=== PATIENT | female | born 1945 | race Caucasian/White ===

== ENCOUNTER 2019-02-21 06:35 | Outpatient (CLI) | payer MEDICARE ==
[~2019-02-21] VITALS: Ht 167.6 cm; Wt 62.6 kg
[2019-02-21] MEDS ORDERED: CLOP75TA28 PO (14:48)
[2019-02-21] MEDS ORDERED: NITR0.4T39 SL (14:48)
[2019-02-21] MEDS ORDERED: ASPI-586 PO (14:48)
[2019-02-21] MEDS ORDERED: MULT-1021 PO (14:48)
[2019-02-21] MEDS ORDERED: CALC-654 PO (14:48)
[2019-02-21] MEDS ORDERED: DICY10CA12 PO (14:48)
[2019-02-21] MEDS ORDERED: PANT40TA3 PO (14:48)
[2019-02-21] MEDS ORDERED: CITA40TA11 PO (14:48)
[2019-02-21] MEDS ORDERED: CYAN100088 PO (14:48)
[2019-02-21] MEDS ORDERED: MELO7.5T46 PO (14:48)
[2019-02-21] MEDS ORDERED: POTA20TA8 PO (14:48)
[2019-02-21] MEDS ORDERED: METO50TA15 PO (14:48)
[2019-02-21] MEDS ORDERED: NAPR-1033 PO (14:48)
[2019-02-21] MEDS ORDERED: ZOLP10TA5 PO (14:48)
[2019-02-21] MEDS ORDERED: TRAM50TA2 PO (14:48)
[2019-02-21] MEDS ORDERED: ROPI0.5T2 PO (14:48)
[2019-02-21] MEDS ORDERED: TERB250T16 PO (14:48)
[2019-02-21] MEDS ORDERED: FURO20TA4 PO (14:48)
[2019-02-21] MEDS ORDERED: MELA1TAB15 PO (14:48)
[2019-02-21] MEDS ORDERED: CETI10TA17 PO (14:48)
[2019-02-21] MEDS ORDERED: DIPH50CA40 PO (14:48)
[2019-02-21] MEDS ORDERED: DOCU100T7 PO (14:48)
[2019-02-21] MEDS ORDERED: PRAV40TA2 PO (14:48)
[2019-02-21] MEDS ORDERED: IBUP-2055 PO (14:48)
[2019-02-23] MEDS ORDERED: ISM60TCR PO (07:39)
== END 2019-02-21 15:21 | disposition home or self-care (01) ==
LOC: PREOP 06:35
PROVIDERS: ATTEND Pediatrics
DX: Z01.818 Encounter for other preprocedural examination (principal)

== ENCOUNTER → 2019-03-27 | Outpatient (CLI) | payer MEDICARE ==
[~2019-03-27] VITALS: Ht 165 cm; Wt 63.0 kg
[~2019-03-27] MED LIST: ASPI-586 PO; CALC-654 PO; CATHETER FLUSH 10 ML SYR IV PRN; CETI10TA17 PO; CITA40TA11 PO; CLOP75TA28 PO; CYAN100088 PO; DICY10CA12 PO; DIPH50CA40 PO; DOCU100T7 PO; FURO20TA4 PO; HYDR-3812 PO; IBUP-2055 PO; ISM60TCR PO; MELA1TAB15 PO; MELO7.5T46 PO; METO50TA15 PO; MULT-1021 PO; NAPR-1033 PO; NITR0.4T39 SL; PANT40TA3 PO; POTA20TA8 PO; PRAV40TA2 PO; REGADENOSON 0.4 MG/5 ML SYR (LEXISCAN) IV ONE; ROPI0.5T2 PO; SENN25TA10 PO; TERB250T16 PO; TRAM50TA2 PO; ZOLP10TA5 PO
[2019-03-27 08:06] VITALS: BP 133/81
[2019-03-27 08:08] VITALS: BP 137/76
--- NOTE | 2019-03-27 15:09 | STRESS TEST ---
DATE OF SERVICE: 03/27/2019 REFERRING PHYSICIAN: Dr. Doni Zaman. In summary, the patient was injected with 10.1 mCi of technetium-99 Myoview and the resting images were acquired. Then, with peak stress level, a 32.7 mCi of technetium-99 Myoview were injected and the stress images were acquired. The resting and stress images were reviewed and compared in the short axis, horizontal long axis, and vertical long axis views. Review of the images showed breast attenuation, there is mild decreased uptake at the basal to mid inferior wall with mild reversibility. SSS is 3, SDS 3, TID value is increased to 1.21. On the gated images, the left ventricle appeared to be normal size with normal contractility. Calculated ejection fraction 60%. CONCLUSION: 1. Breast attenuation affecting the quality of the images with mild decreased uptake involving the basal to mid inferior wall with mild reversibility. 2. Transient ischemic dilatation value is mildly increased of 1.21. 3. Normal left ventricular size with normal contractility. Calculated ejection fraction 60%. Job ID: [id number] DocumentID: [id number] Dictated Date: 03/27/2019 11:47:07 Software Configuration Manager Date: 03/27/2019 15:09:01 Dictated By: MARTIR EDWARDS MD
== END ==
LOC: CARD 06:50
PROVIDERS: ATTEND Pediatrics
DX: Z01.810 Encounter for preprocedural cardiovascular examination (principal); C18.3 Malignant neoplasm of hepatic flexure; I25.89 Other forms of chronic ischemic heart disease
CPT/HCPCS: 78452; 93017

== ENCOUNTER 2019-03-30 09:22 | Inpatient (IN) | payer MEDICARE ==
[~2019-03-30] VITALS: Ht 165 cm; Wt 63.2 kg
[2019-03-30] VITALS (10 sets, daily range): BP systolic 92–147; BP diastolic 53–99
[~2019-03-30 09:22] MED LIST changes: -CATHETER FLUSH 10 ML SYR IV PRN; -REGADENOSON 0.4 MG/5 ML SYR (LEXISCAN) IV ONE
[2019-03-30] MEDS ORDERED: CLINDAMYCIN 600 MG/50 ML IVPB 50 ML IV ONE (10:00)
[2019-03-30] MEDS ORDERED: METOCLOPRAMIDE INJ 10 MG/2 ML (REGLAN) IVP ONE (11:00)
[2019-03-30] MEDS ORDERED: FAMOTIDINE 20MG/2ML IV (PEPCID) IVP ONE (11:00)
[2019-03-30] MEDS: LACTATED RINGERS 1,000 ML IV PRN ×3 (11:15→15:45)
[2019-03-30] MEDS: CATHETER FLUSH 10 ML SYR IV PRN (11:15)
--- NOTE | 2019-03-30 12:02 | Progress Note-Pre Operative ---
Pre-Operative Progress Note H&P Reviewed The H&P was reviewed, patient examined and no changes noted. Time Seen by Provider: 12:00 Date H&P Reviewed: Mar 30, 2019 Time H&P Reviewed: 12:01 Pre-Operative Diagnosis: Colon CA, hepatic flexure JOSÉ MIGUEL MOYER DO Mar 30, 2019 12:02
[2019-03-30] MEDS ORDERED: BUP/EPI 0.25% 1:200,000 (MARCAINE) 10 ML VIAL IJ ONE (12:08)
[2019-03-30] MEDS ORDERED: LIDOCAINE PF 2% 5 ML (XYLOCAINE) VIAL ONE (12:08)
[2019-03-30] MEDS ORDERED: ROCURONIUM 10 MG/ML 5 ML SYRINGE IV ONE (12:08)
[2019-03-30] MEDS ORDERED: ONDANSETRON 4 MG/2 ML (SDV) Z0FRAN ONE (12:08)
[2019-03-30] MEDS ORDERED: proPOfol 200 MG/20 ML (DIPRIVAN) VIAL IV ONE (12:08)
[2019-03-30] MEDS ORDERED: DEXAMETHASONE 10 MG/ML (DECADRON) 1 ML VIAL ONE (12:09)
[2019-03-30] MEDS ORDERED: SEVOFLURANE (ULTANE) 15 ML INHAL SOLN ONE ×16 (12:09→17:04)
[2019-03-30] MEDS ORDERED: MIDAZOLAM 2 MG/2 ML (VERSED) VIAL ONE (12:09)
[2019-03-30] MEDS ORDERED: fentaNYL INJECTION 100 MCG/2 ML AMP ONE ×3 (12:09→16:12)
[2019-03-30] MEDS ORDERED: morphine INJ 10 MG/ML 1ML (SYR OR VIAL) ONE (15:10)
[2019-03-30] MEDS ORDERED: BUPIVACAINE 0.5% 30 ML (SENSORCAINE) VIAL ONE (16:02)
[2019-03-30] MEDS ORDERED: morphine INJ 10 MG/ML 1ML (SYR OR VIAL) IVP PRN (16:15)
[2019-03-30] MEDS ORDERED: ONDANSETRON 4 MG/2 ML (SDV) Z0FRAN IVP PRN ×2 (16:15→17:15)
--- NOTE | 2019-03-30 16:22 | Progress Note-Post Operative ---
Post-Operative Progess Note Surgeon (s)/Organ Assembler (s) Surgeon JOSÉ MIGUEL MOYER DO Organ Assembler: [place] Pre-Operative Diagnosis Colon CA, hepatic flexure Post-Operative Diagnosis Same plus extensive adhesions Procedure & Operative Findings Date of Procedure 03/30/19 Procedure Performed/Findings 1. Extended right hemicolectomy 2. Small bowel resection 3. Extensive ROBERT appx 3 hours Anesthesia Type GET Estimated Blood Loss Estimated blood loss (mL): 200ml Specimens/Packing Specimens Removed Right colon with portion of TI and portion of transverse colon Portion of small bowel JOSÉ MIGUEL MOYER DO Mar 30, 2019 16:22
[2019-03-30] MEDS: morphine INJ 10 MG/ML 1ML (SYR OR VIAL) IVP ONE (16:56)
[2019-03-30] MEDS ORDERED: HYDROmorphone 2 MG/ML VIAL (DILAUDID) ONE (17:14)
[2019-03-30] MEDS ORDERED: HYDROmorphone 2 MG/ML VIAL (DILAUDID) IV ONE (17:15)
[2019-03-30] MEDS ORDERED: fentaNYL INJECTION 100 MCG/2 ML AMP IVP ONE (17:15)
--- NOTE | 2019-03-30 18:05 | NUR ---
KANDIS CHURCH admitted to room OR-1, with an admitting diagnosis of colon cancer with colon resection, on 03/30/19 from day surgery via bed,accompanied by carlos jacob rn.KANDIS CHURCH introduced to surroundings, call light, bed controls, phone, TV, temperature control, lights, meal times, smoking policy, visitor policy, side rail policy, bathrooms and showers. Patient Rights given to patient in the handbook. KANDIS CHURCH verbalizes understanding that [facility] is not responsible for the loss or damage to any personal effects or valuables that are kept in the patients posession during their hospitalization. KANDIS CHURCH verbalizes understanding of Interdisciplinary Patient Education. Patient and/or family were informed about the Rapid Response Team and its purpose.
--- NOTE | 2019-03-30 18:05 | NUR ---
report from Henny GOODMAN post op. transferred to 4th floor 430
[2019-03-30] MEDS: LACTATED RINGERS 1,000 ML IV SCH ×2 (19:35→19:53)
[2019-03-30] MEDS: metroNIDAZOLE 500MG/100ML IVPB 100 ML IV SCH (19:53)
[2019-03-30] MEDS: ACETAMINOPHEN 500 MG TAB (TYLENOL) PO SCH (19:53)
[2019-03-30] MEDS: CLINDAMYCIN 600 MG/50 ML IVPB 50 ML IV SCH (21:26)
[2019-03-30] MEDS: KETOROLAC 15 MG/ML VIAL IVP PRN (22:15)
[2019-03-31] MEDS: morphine INJ 4 MG/ML 1 ML (VIAL/SYRINGE) IV PRN ×7 (00:05→22:56)
[2019-03-31 00:32] VITALS: BP 114/71
[2019-03-31] MEDS: metroNIDAZOLE 500MG/100ML IVPB 100 ML IV SCH (03:00)
[2019-03-31] MEDS: ACETAMINOPHEN 500 MG TAB (TYLENOL) PO SCH ×3 (03:00→19:47)
[2019-03-31 04:00] VITALS: BP 98/58
[2019-03-31] MEDS: CLINDAMYCIN 600 MG/50 ML IVPB 50 ML IV SCH ×2 (04:37→11:25)
[2019-03-31] MEDS: LACTATED RINGERS 1,000 ML IV SCH ×2 (06:13→19:30)
--- NOTE | 2019-03-31 06:44 | OPERATIVE REPORT ---
DATE OF SERVICE: 03/30/2019 PREOPERATIVE DIAGNOSES: Colon cancer, hepatic flexure. POSTOPERATIVE DIAGNOSES: Colon cancer, hepatic flexure with possible erosion through into the small intestine as well as adhesions. PROCEDURES PERFORMED: 1. Extended right hemicolectomy. 2. Small bowel resection. 3. Extensive lysis of adhesions taking greater than 3 hours. SURGEON: Marcos Dowling DO. QUALITY ASSURANCE QA LAB ANALYST: Philip Whitehead DO. ANESTHESIA: General endotracheal tube. SPECIMEN: Extended right colon with portion of small bowel. BLOOD LOSS: Approximately 200 mL. FLUIDS: Per anesthesia. POSTOPERATIVE CONDITION: Stable. INDICATION FOR PROCEDURE: The patient is a 73-year-old female who had colonoscopy performed, which showed a colon cancer at the hepatic flexure and she needed a colon resection. She had multiple previous surgeries. FINDINGS: The patient had adhesions. They were very extensive. Finally able to get in and noted a colon mass just distal to the hepatic flexure and it looked like it eroded through and was attached to the small intestine. PROCEDURE NOTE: After informed consent was obtained, the patient was brought to the operating room, placed on the table in supine position. She was sterilely prepped and draped in normal fashion. I started making an incision with #15 blade, carried down through the skin into subcutaneous tissue, started just above the umbilicus. There have been thoughts of doing a laparoscopic hand assisted colon resection, but once we made the first incision, encountered adhesions and there was no way we were going to be able to get into the abdomen with the scopes to do this laparoscopically. Immediately upon making an incision through the skin down to subcutaneous tissue to the fascia and then carefully opening the fascia and then increasing superiorly and inferiorly with Bovie electrocautery, there was a lot of adhesions to the abdominal wall, started taking these down and also increasing the incision superiorly and inferiorly. Basically, the lysis of adhesions took 3 hours, this was just getting into the abdomen and then freeing up all the small intestine, so we could run it to find this. Once we had finally freed up the adhesions, we had actually during this time, pulled the colon away from the peritoneal reflection in the right pericolic gutter and able to rotate this into the middle. Noted that it felt like the cancer had eroded through the colon wall and there was a very tightly adhesed portion of small bowel, elected to resect this. Cut the transverse colon after going through mesentery with Bovie electrocautery and used a SHEMAR-75 to clamp and then transect. We did this below the terminal ileum as well, clamped and transected to remove this and then coming across the small intestine. I decided to resect part of the small bowel, so elected to do the [place] 2-step for the small bowel that we were going to resect made 2 defects in the antimesenteric border of the small intestine with Bovie electrocautery, placed SHEMAR-75 in there and clamped and then fired thereby creating a [id number] functional end-to-end anastomosis and then cutting off the enteroenterostomy when we cut the terminal ileum using the same SHEMAR-75 to do this and then coming across the mesentery to remove this small intestine as well as the terminal ileum, ascending colon, cecum and part of the transverse colon removed all of this en bloc and passed this off the table. We then made a defect in the terminal ileum as well as the transverse colon and placed a SHEMAR-75, one portion of either side, antimesenteric border of the small intestine and the tinea of the large intestine, clamped this together and then fired thereby creating a [id number] functional end-to-end anastomosis and then used another reload of the SHEMAR-75 to cut off the distal portion of the terminal ileum and the colon passed this off the table. Copiously irrigated with normal saline, approximately 3 liters, suctioned this out, intestine laid in very nicely, still a lot of adhesions of the small bowel, but it freed up almost all of it, so we could run it, did not feel any obvious pathology. Nothing in the liver and at this point, then elected to close the incision with #1 double stranded PDS suture running from superior portion to inferior portion tying to itself. The patient did have hernias from the previous surgery. We did not address these. There was one small enterotomy made with tiny bit of spillage of fecal material. We sutured this up and then this came in part of the terminal ileum that we removed. Once we had closed the midline incision with a PDS suture, then we closed the skin with jorge. The area was cleaned and dried, dressing placed. The patient tolerated the procedure. Sponge, instrument and needle count correct at the end of the case. Dr. Whitehead assisted in this case helping to make incisions, close incisions, identify anatomy, helped with lysis of adhesions and hold the anatomy out of the way. Job ID: [id number] DocumentID: [id number] Dictated Date: 03/30/2019 16:20:18 Manufacturing Planner Date: 03/31/2019 00:51:02 Dictated By: DO DIANA SARKAR
[2019-03-31 08:00] VITALS: BP 107/59
[2019-03-31] MEDS: PANTOPRAZOLE 40 MG (PROTONIX) VIAL IVP SCH (08:22)
[2019-03-31] MEDS: KETOROLAC 15 MG/ML VIAL IVP PRN ×2 (09:16→17:53)
--- NOTE | 2019-03-31 10:05 | Anesthesia-General Post-Op ---
General Patient Condition Mental Status/LOC: Same as Preop Cardiovascular: Satisfactory Nausea/Vomiting: Absent Respiratory: Satisfactory Pain: Controlled Complications: Absent Post Op Complications Complications None Follow Up Care/Instructions Patient Instructions None needed. Anesthesia/Patient Condition Patient Condition Patient is doing well, no complaints, stable vital signs, no apparent adverse anesthesia problems. No complications reported per nursing. CORNELIO BROWN CRNA Mar 31, 2019 10:05
[2019-03-31 12:00] VITALS: BP 129/59
--- NOTE | 2019-03-31 14:15 | NUR ---
Pastoral care visit.
[2019-03-31] MEDS: ENOXAPARIN 40 MG/0.4 ML (LOVENOX) SYR SC SCH (15:23)
[2019-03-31 15:40] VITALS: BP 138/63
--- NOTE | 2019-03-31 15:50 | Progress Note - Surgery ---
NORA KATZ,MED STUDENT 03/31/19 1550: Subjective Date Seen by a Provider: Mar 31, 2019 Time Seen by a Provider: 15:00 Subjective/Events-last exam Mrs. maldonado is 1 day status post right colon resection. She states she is feeling well today with slight abdominal pain and some nausea that is worse with movement. She has been able to ambulate to the restroom to urinate but has not yet passed gas or had a bowel movement. She had her daniels catheter removed and urinated 100 cc within an hour of removal. Review of Systems General: No Chills, No Night Sweats HEENT: No Head Aches, No Visual Changes Pulmonary: No Dyspnea, No Cough Cardiovascular: No: Chest Pain Gastrointestinal: Nausea, Abdominal Pain; No: Vomiting Genitourinary: No Dysuria Neurological: No: Confusion Objective Exam Vital Signs Date Time Temp Pulse Resp B/P (MAP) Pulse Ox O2 Delivery O2 Flow Rate FiO2 03/31/19 12:00 36.8 102 20 129/59 (82) 97 Nasal Cannula 3.00 03/31/19 08:00 36.1 96 18 107/59 (75) 92 Nasal Cannula 3.00 03/31/19 04:00 36.0 70 18 98/58 (71) 91 Nasal Cannula 3.00 03/31/19 00:32 36.5 93 22 114/71 (85) 95 Nasal Cannula 3.00 03/30/19 21:00 Nasal Cannula 3.00 03/30/19 19:55 36.8 103 22 138/81 (100) 96 Nasal Cannula 3.00 03/30/19 19:27 Room Air 03/30/19 18:35 36.8 112 20 120/55 (76) 96 Nasal Cannula 3.00 03/30/19 18:05 Nasal Cannula 3 03/30/19 18:00 Nasal Cannula 3 03/30/19 17:50 36.3 16 138/69 (92) 95 Nasal Cannula 03/30/19 17:45 OxyMask 3 03/30/19 17:40 16 119/62 (81) 98 Nasal Cannula 3 03/30/19 17:30 16 138/67 (90) 98 OxyMask 10 03/30/19 17:30 OxyMask 10 03/30/19 17:20 16 142/53 (82) 100 OxyMask 10 03/30/19 17:15 OxyMask 10 03/30/19 17:10 16 147/77 (100) 100 OxyMask 10 03/30/19 17:00 16 145/99 (114) 100 OxyMask 10 03/30/19 17:00 OxyMask 10 03/30/19 16:47 36.6 29 107/95 (99) 99 OxyMask 10 03/30/19 16:47 OxyMask 10 I & O 03/31/19 07:00 Intake Total 3150 ml Output Total 800 ml Balance 2350 ml Capillary Refill : General Appearance: No Apparent Distress, WD/WN HEENT: PERRL/EOMI Neck: Normal Inspection, Supple Respiratory: Chest Non Tender, Lungs Clear, Normal Breath Sounds, No Accessory Muscle Use, No Respiratory Distress Cardiovascular: Regular Rate, Rhythm, No Murmur Peripheral Pulses: 2+ Radial Pulses (R), 2+ Radial Pulses (L) Gastrointestinal: normal bowel sounds, soft, tenderness (diffuse) Extremity: No Pedal Edema Neurologic/Psychiatric: Alert, Oriented x3, Normal Mood/Affect Skin: Normal Color, Warm/Dry, Other (midline abdominal incision closed with jorge ) Lymphatic: No Adenopathy Assessment/Plan Assessment/Plan Assessment/Plan S/P colon resection Encouraged to ambulate as tolerated. Continue liquid diet. Will likely discharge once patient has had bowel movement, can tolerate food well, and her pain in controlled. Clinical Quality Measures DVT/VTE Risk/Contraindication: Risk Factor Score Per Nursin RFS Level Per Nursing on Admit: 4+=Very High MARCOS MOYER DO 03/31/19 1802: Subjective Time Seen by a Provider: 15:00 Subjective/Events-last exam Pt states pain is mostly controlled, he main complaint is of nausea; severe when she walks. Assessment/Plan Assessment/Plan Assessment/Plan Encourage IS, pain control, will await return of bowel function. Supervisory-Addendum Brief Verification & Attestation Participated in pt care: history, MDM, physical Personally performed: exam, history, MDM Care discussed with: Medical Student Procedures: n/a Verification and Attestation of Medical Student E/M Service A medical student performed and documented this service in my presence. I reviewed and verified all information documented by the medical student and made modifications to such information, when appropriate. I personally performed the physical exam and medical decision making. Marcos Moyer, Mar 31, 2019,18:01 NORA KATZ,MED STUDENT Mar 31, 2019 15:50 MARCOS MOYER DO Mar 31, 2019 18:02
[2019-03-31] MEDS ORDERED: ONDANSETRON 4 MG/2 ML (SDV) Z0FRAN IVP PRN (18:00)
[2019-03-31 19:55] VITALS: BP 161/74
[2019-04-01] VITALS: BP 145/67
[2019-04-01] MEDS: LACTATED RINGERS 1,000 ML IV SCH ×3 (00:34→18:27)
[2019-04-01] MEDS: KETOROLAC 15 MG/ML VIAL IVP PRN ×2 (02:23→16:07)
[2019-04-01] MEDS: ACETAMINOPHEN 500 MG TAB (TYLENOL) PO SCH ×3 (02:24→18:34)
[2019-04-01 04:00] VITALS: BP 125/58
[2019-04-01 07:46] VITALS: BP 136/69
[2019-04-01] MEDS: PANTOPRAZOLE 40 MG (PROTONIX) VIAL IVP SCH (08:13)
[2019-04-01] MEDS: CATHETER FLUSH 10 ML SYR IV PRN (08:17)
[2019-04-01] MEDS: morphine INJ 4 MG/ML 1 ML (VIAL/SYRINGE) IV PRN ×5 (08:17→23:54)
--- NOTE | 2019-04-01 09:06 | Progress Note - Surgery ---
NORA KATZ,MED STUDENT 04/01/19 0906: Subjective Date Seen by a Provider: Apr 01, 2019 Time Seen by a Provider: 08:00 Subjective/Events-last exam Mrs. Wilson is day 2 S/P colon resection. She is complaining of some abdominal pain that is a 5/10 and burning or sharp (when coughing) in nature. She states her nausea has resolved a this time after she had 1 episode of vomiting last night. She has yet to pass gas or have a bowel movement. She has been able to ambulate to the restroom and in the halls with assistance from a walker. She also complains of a chronic productive cough that worsens her abdominal pain. She currently smokes cigarettes 1 1/2 ppd and has done so for 40 years. She is on 1L of O2 and denies use of O2 at home. Review of Systems General: No Chills, No Night Sweats HEENT: No Head Aches, No Visual Changes Pulmonary: Dyspnea (due to pain with deep breath and cough), Cough Gastrointestinal: Nausea, Vomiting, Abdominal Pain Genitourinary: No Dysuria, No Retention Neurological: No: Weakness Objective Exam Vital Signs Date Time Temp Pulse Resp B/P (MAP) Pulse Ox O2 Delivery O2 Flow Rate FiO2 04/01/19 07:46 36.1 112 18 136/69 (91) 91 Nasal Cannula 3.00 04/01/19 04:00 36.2 105 16 125/58 (80) 95 Nasal Cannula 2.00 04/01/19 00:00 36.9 110 16 145/67 (93) 95 Nasal Cannula 2.00 03/31/19 20:00 Nasal Cannula 3.00 03/31/19 19:55 36.2 109 20 161/74 (103) 96 Nasal Cannula 2.00 03/31/19 16:06 Nasal Cannula 2.00 03/31/19 15:40 36.0 107 20 138/63 (88) 95 Nasal Cannula 2.50 03/31/19 12:00 36.8 102 20 129/59 (82) 97 Nasal Cannula 3.00 I & O 04/01/19 07:00 Intake Total 1700 ml Output Total 1475 ml Balance 225 ml Capillary Refill : General Appearance: No Apparent Distress, WD/WN HEENT: PERRL/EOMI Respiratory: Chest Non Tender, Lungs Clear, Normal Breath Sounds Cardiovascular: Regular Rate, Rhythm, No Murmur Peripheral Pulses: 2+ Radial Pulses (R), 2+ Radial Pulses (L) Gastrointestinal: normal bowel sounds; No soft, No guarding, No rebound; tenderness (diffuse), other (slightly firm) Extremity: No Pedal Edema Neurologic/Psychiatric: Alert, Oriented x3, Normal Mood/Affect Skin: Normal Color, Warm/Dry, Other (midline abdominal incision closed with jorge ) Assessment/Plan Assessment/Plan Assessment/Plan S/P colon resection Encouraged ambulation and IS. Continue pain control and antiemetics. Awaiting return of bowel function. Discussed smoking cessation Clinical Quality Measures DVT/VTE Risk/Contraindication: Risk Factor Score Per Nursin RFS Level Per Nursing on Admit: 4+=Very High MARCOS DOWLING DO 04/01/19 1316: Subjective Time Seen by a Provider: 11:20 Subjective/Events-last exam Pt states pain is somewhat better, she did walk a little. Assessment/Plan Assessment/Plan Assessment/Plan S/P colon resection and SBR increase ambulation and IS use Supervisory-Addendum Brief Verification & Attestation Participated in pt care: history, MDM, physical Personally performed: exam, history, MDM Care discussed with: Medical Student Procedures: n/a Verification and Attestation of Medical Student E/M Service A medical student performed and documented this service in my presence. I reviewed and verified all information documented by the medical student and made modifications to such information, when appropriate. I personally performed the physical exam and medical decision making. Marcos Dowling Apr 01, 2019,13:15 NORA KATZMED STUDENT Apr 01, 2019 09:06 MARCOS DOWLING DO Apr 01, 2019 13:16
[2019-04-01 10:10] LABS: HEMOGLOBIN 11.2 G/DL (11.5-16.0); MEAN PLATELET VOLUME 9.6 FL (7.4-10.4); RED CELL DISTRIBUTION WIDTH 13.5 % (10.0-14.5); WHITE BLOOD COUNT 11.1 10^3/uL (4.3-11.0)
[2019-04-01 10:25] LABS: BUN/CREATININE RATIO 17; CALCIUM 9.1 MG/DL (8.5-10.1); CARBON DIOXIDE 23 MMOL/L (21-32); CHLORIDE 106 MMOL/L (98-107); CREATININE SERUM 0.64 MG/DL (0.60-1.30); GFR ESTIMATED > 60; GLUCOSE 129 MG/DL (70-105); POTASSIUM 3.9 MMOL/L (3.6-5.0); SODIUM 137 MMOL/L (135-145)
[2019-04-01 11:36] VITALS: BP 134/62
[2019-04-01] MEDS: ENOXAPARIN 40 MG/0.4 ML (LOVENOX) SYR SC SCH (15:57)
[2019-04-01 16:00] VITALS: BP 135/69
[2019-04-01] MEDS ORDERED: NITROGLYCERIN 0.4 MG SL TABS BTL 25'S SL PRN (18:15)
[2019-04-02] VITALS: BP 130/60
[2019-04-02] MEDS: ACETAMINOPHEN 500 MG TAB (TYLENOL) PO SCH ×3 (03:50→18:09)
[2019-04-02] MEDS: KETOROLAC 15 MG/ML VIAL IVP PRN ×2 (05:51→13:36)
[2019-04-02 08:00] VITALS: BP 109/73
[2019-04-02] MEDS: PANTOPRAZOLE 40 MG (PROTONIX) VIAL IVP SCH (08:36)
--- NOTE | 2019-04-02 09:32 | Progress Note - Surgery ---
NORA KATZ,MED STUDENT 04/02/19 0932: Subjective Date Seen by a Provider: Apr 02, 2019 Time Seen by a Provider: 08:00 Subjective/Events-last exam Mrs. maldonado is day 3 S/P colon and small bowel resection. She states she had not passed gas or had a bowel movement since surgery. She has been on a liquid diet and denies any nausea or vomiting at this time. she did have some nausea 2 days ago but it has resolved. shes complains of abdominal pain that is a 3/10 with rest and a 10/10 with coughing. Review of Systems General: No Chills, No Fatigue HEENT: No Dysphasia, No Sore Throat Pulmonary: No Dyspnea; Cough Cardiovascular: No: Chest Pain, Edema Gastrointestinal: Abdominal Pain; No: Nausea, Vomiting Genitourinary: No Dysuria, No Retention Neurological: No: Weakness, Confusion Objective Exam Vital Signs Date Time Temp Pulse Resp B/P (MAP) Pulse Ox O2 Delivery O2 Flow Rate FiO2 04/02/19 08:00 35.7 121 20 109/73 (85) 91 Nasal Cannula 0.50 04/02/19 00:00 36.2 108 18 130/60 (83) 90 Room Air 04/01/19 20:30 Room Air 04/01/19 16:00 36.2 112 16 135/69 (91) 92 Nasal Cannula 0.50 04/01/19 11:36 36.0 104 22 134/62 (86) 95 Nasal Cannula 3.00 I & O 04/02/19 07:00 Intake Total 1230 ml Output Total 700 ml Balance 530 ml Capillary Refill : General Appearance: No Apparent Distress, WD/WN HEENT: PERRL/EOMI Respiratory: Chest Non Tender, Lungs Clear, Normal Breath Sounds Cardiovascular: No Murmur, Tachycardia (regular rhythm) Peripheral Pulses: 2+ Radial Pulses (R), 2+ Radial Pulses (L) Gastrointestinal: normal bowel sounds; No soft, No guarding, No rebound; tenderness (diffuse), other (slightly firm) Extremity: No Calf Tenderness, No Pedal Edema Neurologic/Psychiatric: Alert, Oriented x3, Normal Mood/Affect Skin: Normal Color, Warm/Dry, Other (midline abdominal incision closed with jorge ) Results Lab Laboratory Tests 04/01/19 09:31: White Blood Count 11.1H, Red Blood Count 3.89L, Hemoglobin 11.2L, Hematocrit 34L , Mean Corpuscular Volume 88, Mean Corpuscular Hemoglobin 29, Mean Corpuscular Hemoglobin Concent 33, Red Cell Distribution Width 13.5, Platelet Count 264, Mean Platelet Volume 9.6, Sodium Level 137, Potassium Level 3.9, Chloride Level 106, Carbon Dioxide Level 23, Anion Gap 8, Blood Urea Nitrogen 11, Creatinine 0.64, Estimat Glomerular Filtration Rate > 60, BUN/Creatinine Ratio 17, Glucose Level 129H, Calcium Level 9.1 Assessment/Plan Assessment/Plan Assessment/Plan S/P Colon Resection and Small Bowel Resection Encouraged her to continue ambulating and increase the use of IS. continue antiemetics and pain control as needed. Awaiting bowel function return. Clinical Quality Measures DVT/VTE Risk/Contraindication: Risk Factor Score Per Nursin RFS Level Per Nursing on Admit: 4+=Very High MARCOS DOWLING DO 04/02/19 1254: Subjective Time Seen by a Provider: 10:40 Subjective/Events-last exam Pt seen and examined, still has abdominal pain, not really improving. Objective Exam Gastrointestinal: distended (slight, and maybe minimally more than yesterday) Assessment/Plan Assessment/Plan Assessment/Plan S/P Colon resection and SBR Ileus Pt told increase ambulation, will try dulcolax suppository. Check labs in am. Supervisory-Addendum Brief Verification & Attestation Participated in pt care: history, MDM, physical Personally performed: exam, history, MDM Care discussed with: Medical Student Procedures: n/a Verification and Attestation of Medical Student E/M Service A medical student performed and documented this service in my presence. I review ed and verified all information documented by the medical student and made modifications to such information, when appropriate. I personally performed the physical exam and medical decision making. Marcos Dowling, Apr 02, 2019,12:54 NORA KATZ MED STUDENT Apr 02, 2019 09:32 MARCOS DOWLING DO Apr 02, 2019 12:54
--- NOTE | 2019-04-02 09:56 | Diagnostic Imaging Report ---
Clinical indication: Patient had bowel surgery 2 days ago. The patient has abdominal distention. No bowel movement since surgery. Exam: X-ray of the abdomen upright and supine views. Comparison: Small bowel follow-through study dated 09/06/2007. Findings: Midline skin jorge are noted. Surgical clips overlying the pelvis. There is air dilated loops of large bowel and mildly air distended loops of small bowel seen. There are multiple air-fluid levels overlying the left colon and small bowel regions. There is small amount of air in the pelvis and abdominal region. There is no definite air in the rectal region. There is degenerative disease in lower lumbar spine seen. Impression: 1: There is air dilated loops of small and large bowel with air-fluid levels seen. There is no definite air in the rectum region. These findings may be related to distal colonic obstruction versus ileus. CT scan would better evaluate. 2: Intra-abdominal free air seen which may be related to recent surgery. Dictated by: Dictated on workstation # [id number]
[2019-04-02] MEDS ORDERED: BISACODYL 10 MG SUPP (DULCOLAX) PR ONE (10:30)
[2019-04-02] MEDS: ENOXAPARIN 40 MG/0.4 ML (LOVENOX) SYR SC SCH (15:51)
[2019-04-02 16:22] VITALS: BP 84/69
[2019-04-02 16:58] VITALS: BP 130/58
[2019-04-02 19:57] VITALS: BP 125/76
[2019-04-02 23:25] VITALS: BP 132/84
[2019-04-03] MEDS: ACETAMINOPHEN 500 MG TAB (TYLENOL) PO SCH ×3 (02:31→19:36)
[2019-04-03] MEDS: morphine INJ 4 MG/ML 1 ML (VIAL/SYRINGE) IV PRN ×3 (02:32→22:42)
[2019-04-03 05:28] LABS: BASOPHILS % (AUTO) 0 % (0-10); EOSINOPHILS # (AUTO) 0.1 10^3/uL (0.0-0.3); EOSINOPHILS % (AUTO) 2 % (0-10); HEMATOCRIT 31 % (35-52); HEMOGLOBIN 9.8 G/DL (11.5-16.0); LYMPHOCYTES # (AUTO) 0.6 X 10^3 (1.0-4.0); LYMPHOCYTES % (AUTO) 11 % (12-44); MEAN CORPUSCULAR HEMOGLOBIN 28 PG (25-34); MEAN CORPUSCULAR HGB CONC 32 G/DL (32-36); MEAN CORPUSCULAR VOLUME 88 FL (80-99); MEAN PLATELET VOLUME 9.3 FL (7.4-10.4); MONOCYTES # (AUTO) 0.3 X 10^3 (0.0-1.0); MONOCYTES % (AUTO) 5 % (0-12); NEUTROPHILS # (AUTO) 4.4 X 10^3 (1.8-7.8); NEUTROPHILS % (AUTO) 82 % (42-75); PLATELET COUNT 334 10^3/uL (130-400); RED CELL DISTRIBUTION WIDTH 13.7 % (10.0-14.5); WHITE BLOOD COUNT 5.3 10^3/uL (4.3-11.0)
[2019-04-03 05:49] LABS: ALANINE AMINOTRANSFERASE 20 U/L (0-55); ALBUMIN 2.8 GM/DL (3.2-4.5); ALKALINE PHOSPHATASE 50 U/L (40-136); BILIRUBIN,TOTAL 0.3 MG/DL (0.1-1.0); BUN/CREATININE RATIO 24; CALCIUM 8.7 MG/DL (8.5-10.1); CARBON DIOXIDE 23 MMOL/L (21-32); CHLORIDE 107 MMOL/L (98-107); CREATININE SERUM 0.55 MG/DL (0.60-1.30); GFR ESTIMATED > 60; GLUCOSE 103 MG/DL (70-105); POTASSIUM 3.4 MMOL/L (3.6-5.0); SODIUM 141 MMOL/L (135-145); TOTAL PROTEIN 5.9 GM/DL (6.4-8.2)
[2019-04-03 08:00] VITALS: BP 150/67
[2019-04-03] MEDS: PANTOPRAZOLE 40 MG (PROTONIX) VIAL IVP SCH (08:02)
--- NOTE | 2019-04-03 08:04 | Progress Note - Surgery ---
NORA KATZ,MED STUDENT 04/03/19 0804: Subjective Date Seen by a Provider: Apr 03, 2019 Time Seen by a Provider: 07:30 Subjective/Events-last exam Mrs. Wilson is day 4 S/P colon and small bowel resection. She states she is feeling better today with decreased pain she notes as a 1/10 at rest that is worsened with coughing. She states she has been passing gas all night and has been having loose bowel movements. She denies any black stool or bright red blood in her stool. No nausea or vomiting. She has been up walking and is able to ambulate to the restroom. Review of Systems General: No Chills, No Fatigue HEENT: No Head Aches, No Visual Changes Pulmonary: No Dyspnea; Cough Cardiovascular: No: Chest Pain Gastrointestinal: Abdominal Pain, Diarrhea; No: Nausea, Vomiting, Constipation Genitourinary: No Incontinence, No Retention Neurological: No: Weakness, Confusion Objective Exam Vital Signs Date Time Temp Pulse Resp B/P (MAP) Pulse Ox O2 Delivery O2 Flow Rate FiO2 04/02/19 23:25 36.0 108 20 132/84 (100) 95 Room Air 04/02/19 20:45 Room Air 04/02/19 19:57 105 125/76 (92) 04/02/19 16:58 107 130/58 (82) 04/02/19 16:22 36.8 111 22 84/69 (74) 94 Room Air 04/02/19 08:00 35.7 121 20 109/73 (85) 91 Nasal Cannula 0.50 04/02/19 08:00 Room Air I & O 04/03/19 07:00 Output Total 450 ml Balance -450 ml Capillary Refill : General Appearance: No Apparent Distress, WD/WN HEENT: PERRL/EOMI Respiratory: Chest Non Tender, Lungs Clear, Normal Breath Sounds, No Respiratory Distress Cardiovascular: Regular Rate, Rhythm, No Murmur Peripheral Pulses: 2+ Radial Pulses (R), 2+ Radial Pulses (L) Gastrointestinal: normal bowel sounds, distended (slightly); No guarding, No rebound; tenderness Extremity: No Calf Tenderness, No Pedal Edema Neurologic/Psychiatric: Alert, Oriented x3, Normal Mood/Affect Skin: Normal Color, Warm/Dry, Other (midline abdominal incision closed with jorge ) Results Lab Laboratory Tests 04/03/19 05:04: White Blood Count 5.3, Red Blood Count 3.53L, Hemoglobin 9.8L, Hematocrit 31L, Mean Corpuscular Volume 88, Mean Corpuscular Hemoglobin 28, Mean Corpuscular Hemoglobin Concent 32, Red Cell Distribution Width 13.7, Platelet Count 334, Mean Platelet Volume 9.3, Neutrophils (%) (Auto) 82H, Lymphocytes (%) (Auto) 11L , Monocytes (%) (Auto) 5, Eosinophils (%) (Auto) 2, Basophils (%) (Auto) 0, Neutrophils # (Auto) 4.4, Lymphocytes # (Auto) 0.6L, Monocytes # (Auto) 0.3, Eosinophils # (Auto) 0.1, Basophils # (Auto) 0.0, Sodium Level 141, Potassium Level 3.4L, Chloride Level 107, Carbon Dioxide Level 23, Anion Gap 11, Blood Urea Nitrogen 13, Creatinine 0.55L, Estimat Glomerular Filtration Rate > 60, BUN/Creatinine Ratio 24, Glucose Level 103, Calcium Level 8.7, Corrected Calcium 9.7, Total Bilirubin 0.3, Aspartate Amino Transf (AST/SGOT) 13, Alanine Aminotransferase (ALT/SGPT) 20, Alkaline Phosphatase 50, Total Protein 5.9L, Albumin 2.8L Assessment/Plan Assessment/Plan Assessment/Plan S/P Colon Resection and Small Bowel Resection Ileus Encouraged increase in ambulation and IS use. Continue IVF, antiemetics, and pain control as needed. Possibly advance patients diet from NPO to clear liquids if tolerated Clinical Quality Measures DVT/VTE Risk/Contraindication: Risk Factor Score Per Nursin RFS Level Per Nursing on Admit: 4+=Very High MARCOS DOWLING DO 04/03/19 1423: Subjective Time Seen by a Provider: 14:07 Subjective/Events-last exam Pt seen ambulating in the halls, states she had mutliple bowel movements and pa in much better now. Objective Exam Gastrointestinal: soft, distended (very slight, definitely improved compared to yesterday), tenderness (improved) Assessment/Plan Assessment/Plan Assessment/Plan Will increase to soft diet, continue ambulation and IS use. Hopefully home tomorrow. Supervisory-Addendum Brief Verification & Attestation Participated in pt care: history, MDM, physical Personally performed: exam, history, MDM Care discussed with: Medical Student Procedures: n/a Verification and Attestation of Medical Student E/M Service A medical student performed and documented this service in my presence. I reviewed and verified all information documented by the medical student and made modifications to such information, when appropriate. I personally performed the physical exam and medical decision making. Marcos Dowling, Apr 03, 2019,14:23 NORA KATZ,MED STUDENT Apr 03, 2019 08:04 MARCOS DOWLING DO Apr 03, 2019 14:23
[2019-04-03] MEDS ORDERED: BISACODYL 10 MG SUPP (DULCOLAX) PR SCH (09:00)
--- NOTE | 2019-04-03 13:00 | NUR ---
RD ASSESSMENT PMHx: CA (colon) PT INTERACTION: Pt was awake and pleasant during consult for nutrition assessment. Pt states current appetite as "hungry," and asked when she could get something to eat. Pt states some issues with nausea, but not vomiting. Note pt unable to determine frequency or timeframe of episodes of nausea. Pt states frequent episodes of BMs yesterday. Note 4 BMs on 04/02, per chart review. Pt states some weight changes, "I'm sure I've lost something like 3-4 pounds since I've been here." Note unable to determine recent weight hx, per chart review. Pt appears to be missing teeth, but could not see dentures in the room. Upon visual exam, pt appears to be adequately nourished at this time with BMI of 23.2. ABNORMAL LAB VALUES: K 3.4 (L); cr 0.55 (L); Hgb 9.8 (L); Hct 31 (L); alb 2.8 (L); Pro 5.9 (L) Est. kcal needs: 9521-2014 (25-30 kcal/kg) Est. Pro needs: 75-95 g Pro (1.2-1.5 g Pro/kg) PES STATEMENT: Inadquate oral intake related to NPO status as evidenced by s/p day 4 colon / SB resection INTERVENTION: Advance to clear liquid diet, when medically able. Pt may benefit from nutrition supplementation if pt develops poor po intake. Will follow-up as needed. MONITOR/EVALUATE: Diet Advancement Weight Status PO Intake Hydration status Lab values Shawn Talbert MS, RD [phone]
[2019-04-03 16:00] VITALS: BP 119/73
[2019-04-03] MEDS: ENOXAPARIN 40 MG/0.4 ML (LOVENOX) SYR SC SCH (17:13)
[2019-04-04 00:12] VITALS: BP 148/72
[2019-04-04] MEDS: ACETAMINOPHEN 500 MG TAB (TYLENOL) PO SCH ×2 (03:53→12:24)
[2019-04-04] MEDS: morphine INJ 4 MG/ML 1 ML (VIAL/SYRINGE) IV PRN (05:47)
[2019-04-04 08:00] VITALS: BP 125/58
--- NOTE | 2019-04-04 08:24 | Progress Note - Surgery ---
NORA KATZ,MED STUDENT 04/04/19 0824: Subjective Date Seen by a Provider: Apr 04, 2019 Time Seen by a Provider: 07:45 Subjective/Events-last exam Mrs. Wilson states she continues to improve and feel well. She is tolerated her clear liquid diet well and would like to advance her diet. She has continued to have bowel movements throughout the night and yesterday evening. She states they are loose but denies any birght red blood or black stools. She states her pain is a 1/10 at rest and worsened with coughing. She has been up walking in the halls and to the restroom with a walker. She does complain of nasal congestion and a sore in her right nares from wearing O2 nasal cannula previously. Review of Systems General: No Chills, No Fatigue HEENT: Sinus Congestion Pulmonary: No Dyspnea; Cough Cardiovascular: No: Chest Pain, Palpitations Gastrointestinal: Abdominal Pain, Diarrhea; No: Nausea, Vomiting, Constipation Genitourinary: No Dysuria, No Frequency Neurological: No: Weakness, Confusion Objective Exam Vital Signs Date Time Temp Pulse Resp B/P (MAP) Pulse Ox O2 Delivery O2 Flow Rate FiO2 04/04/19 00:12 36.6 98 18 148/72 (97) 96 Room Air 04/03/19 20:26 Room Air 04/03/19 16:00 36.6 83 20 119/73 (88) 98 Room Air I & O 04/04/19 07:00 Intake Total 1870 ml Balance 1870 ml Capillary Refill : General Appearance: No Apparent Distress, WD/WN HEENT: PERRL/EOMI, Moist Mucous Membranes Neck: Non Tender, Supple Respiratory: Chest Non Tender, Lungs Clear, Normal Breath Sounds, No Respiratory Distress Cardiovascular: Regular Rate, Rhythm, No Murmur Peripheral Pulses: 2+ Radial Pulses (R), 2+ Radial Pulses (L) Gastrointestinal: normal bowel sounds, distended (improved), tenderness (RUQ and RLQ - improved) Extremity: No Calf Tenderness, No Pedal Edema Neurologic/Psychiatric: Alert, Oriented x3, Normal Mood/Affect Skin: Normal Color, Warm/Dry, Other (midline abdominal incision closed with jorge ) Assessment/Plan Assessment/Plan Assessment/Plan Increase to soft diet. Continue antiemetics and pain control as needed. Encoureliana gedelores she continue ambulation and use of her IS. Follow-up with Dr. Dowling in clinic Clinical Quality Measures DVT/VTE Risk/Contraindication: Risk Factor Score Per Nursin RFS Level Per Nursing on Admit: 4+=Very High JOSÉ MIGUEL DOWLING DO 04/04/19 1158: Subjective Time Seen by a Provider: 11:44 Subjective/Events-last exam Pt seen and examined. Tolerating diet, urinating and having BM's. Wants to go home. Assessment/Plan Assessment/Plan Assessment/Plan D/C IC and D/C home Supervisory-Addendum Brief Verification & Attestation Participated in pt care: history, MDM, physical Personally performed: exam, history, MDM Care discussed with: Medical Student Procedures: n/a Verification and Attestation of Medical Student E/M Service A medical student performed and documented this service in my presence. I reviewed and verified all information documented by the medical student and made modifications to such information, when appropriate. I personally performed the physical exam and medical decision making. José Miguel Dowling, Apr 04, 2019,11:58 NORA KATZ,MED STUDENT Apr 04, 2019 08:24 JOSÉ MIGUEL DOWLING DO Apr 04, 2019 11:58
--- NOTE | 2019-04-04 09:13 | NUR ---
Pt lives in [place], [place] with her and has a large extended family of children and grandchildren. 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 Pt has no complaints and is anxious to return home Will follow for any post hospital needs.
[2019-04-04] MEDS: PANTOPRAZOLE 40 MG (PROTONIX) VIAL IVP SCH (09:57)
--- NOTE | 2019-04-04 12:01 | Discharge Inst-Surgical ---
Discharge Inst-Surgical Depart Medication/Instructions New, Converted or Re-Newed RX: Other (resume home meds, no other Rx needed) Patient Instructions Follow up Appt: Make appointment for 1 week. [phone] Pt would like to be seen . Instructions: No lifting greater than 20 pounds. No strenuous activity. May shower in 24 hours, no tub bath or soaking. Use incentive spirometer at home as directed. No Smoking Skin/Wound Care: May remove bandages in am. You need to leave the jorge alone and come in to clinic to have them removed. Symptoms to Report: Appetite Changes, Extremity Discoloration, Numbness/Tingling, Swelling Increased, Bleeding Excessive, Eyesight Changes, Pain Increased, Urine Color Change, Constipation(Persistent), Fever over 101 degree F, Pain/Pressure in chest, Urinating Difficulty, Cough Up/Vomit Blood, Heart Beat Irreg/Pounding, Pain/Pressure in jaw, Cramps in feet or legs, Lightheadedness, Pain/Pressure in shoulder, Diarrhea(Persistent), Memory Changes Suddenly, Questions/Concerns, Weight gain consecutive days, Dizziness/Fainting, Nausea/Vomiting, Shortness of Breath, Weight gain over 2 pounds If questions or concerns contact your physician Or seek help at emergency department. Activity Activity Instructions: Avoid Stress to Incision Driving Instructions: No Driving/Refer to Dr. Harkins Discharge Diet: No Restrictions Diet After 24 Hours: Clear Liquid if Nauseous If Any Problems/Questions/Issu: Contact Your Physician, Go to Emergency Room Skin/Wound Care Infection Signs and Symptoms: Increased Redness, Foul Odor of Wound, Increased Drainage, Skin Itchy or Has a Rash, Increased Swelling, Temperature Above 101 F Stitches/Jorge/Dermabond Dis: Care of JOSÉ MIGUEL Campbell DO Apr 04, 2019 12:01
--- NOTE | 2019-04-04 16:32 | NUR ---
Pt provided a Front wheel walker upon discharge. She is looking forward to returning home. Pt's will be her primary caregiver.Pt states she has no further needs and will be followed by Dr. Dowling.
--- NOTE | 2019-04-10 13:47 | Physician Query Clarification ---
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 Path - CA extends to invade the serosa of the small bowel Treatment: resection Question: Can you further specify any metastatic sites of the Hepatic flexure CA per the clinical indicators above? Please document a response in the Progress Notes or Discharge Summary. 1. small bowel metastasis 2. No metastasis 3. Other, with explanation of the clinical findings. 4. Clinically undetermined, no explanation for the clinical findings. PHYSICIAN RESPONSE Can you specify per above: 1 Please remember a lack of response to the above will prompt a phone page by CDI/Coding staff. In responding to this query, please exercise your independent professional judgment. The purpose of this communication is to more accurately reflect the complexity of your patients condition. The fact that a question is asked does not imply that any particular answer is desired or expected. Thank you for your timely response to this clarification. Requestors name: Alex THIS PHYSICIAN QUERY FORM IS A PERMANENT PART OF THE MEDICAL RECORD ALEX BARRETT Apr 10, 2019 13:47 JOSÉ MIGUEL MOYER DO Apr 11, 2019 10:48
== END 2019-04-04 15:10 | disposition home or self-care (01) | DRG 330 ==
LOC: 4TH 09:22 → SURG 09:23 → 4TH 18:00
PROVIDERS: ADMIT Surgery; ATTEND Surgery
PROC: 0DB80ZZ Excision of Small Intestine, Open Approach (ICD-10-PCS; 2019-03-30)
PROC: 0DN80ZZ Release Small Intestine, Open Approach (ICD-10-PCS; 2019-03-30)
PROC: 0DTF0ZZ Resection of Right Large Intestine, Open Approach (ICD-10-PCS; principal; 2019-03-30 12:38)
DX: C18.3 Malignant neoplasm of hepatic flexure (principal); C78.4 Secondary malignant neoplasm of small intestine; K66.0 Peritoneal adhesions (postprocedural) (postinfection); K59.00 Constipation, unspecified; E11.9 Type 2 diabetes mellitus without complications; I10 Essential (primary) hypertension; F17.210 Nicotine dependence, cigarettes, uncomplicated
CPT/HCPCS: 36415; 74019; 78452; 80048; 80053; 85025; 85027; 86850; 86900; 86901; 93005; 93017; 94664

== ENCOUNTER → 2019-04-20 | Outpatient (CLI) | payer MEDICARE ==
[2019-04-20 15:40] LABS: HEMOGLOBIN 13.1 G/DL (11.5-16.0)
== END ==
LOC: LAB 15:28
PROVIDERS: ATTEND Surgery
DX: D64.9 Anemia, unspecified (principal)
CPT/HCPCS: 36415; 85014; 85018

== ENCOUNTER 2019-05-04 10:14 | Outpatient (RCR) | payer MEDICARE ==
[2019-05-04 10:41] LABS: BASOPHILS % (AUTO) 1 % (0-10); EOSINOPHILS # (AUTO) 0.3 10^3/uL (0.0-0.3); EOSINOPHILS % (AUTO) 6 % (0-10); HEMATOCRIT 39 % (35-52); HEMOGLOBIN 12.4 G/DL (11.5-16.0); LYMPHOCYTES # (AUTO) 1.1 X 10^3 (1.0-4.0); LYMPHOCYTES % (AUTO) 19 % (12-44); MEAN CORPUSCULAR HEMOGLOBIN 28 PG (25-34); MEAN CORPUSCULAR HGB CONC 32 G/DL (32-36); MEAN CORPUSCULAR VOLUME 86 FL (80-99); MEAN PLATELET VOLUME 9.3 FL (7.4-10.4); MONOCYTES # (AUTO) 0.5 X 10^3 (0.0-1.0); MONOCYTES % (AUTO) 8 % (0-12); NEUTROPHILS # (AUTO) 3.6 X 10^3 (1.8-7.8); NEUTROPHILS % (AUTO) 66 % (42-75); PLATELET COUNT 287 10^3/uL (130-400); RED CELL DISTRIBUTION WIDTH 15.3 % (10.0-14.5); WHITE BLOOD COUNT 5.4 10^3/uL (4.3-11.0)
[2019-05-04 10:57] LABS: ALANINE AMINOTRANSFERASE 17 U/L (0-55); ALBUMIN 3.6 GM/DL (3.2-4.5); ALKALINE PHOSPHATASE 56 U/L (40-136); BILIRUBIN,TOTAL 0.2 MG/DL (0.1-1.0); BUN/CREATININE RATIO 17; CALCIUM 8.9 MG/DL (8.5-10.1); CARBON DIOXIDE 22 MMOL/L (21-32); CHLORIDE 106 MMOL/L (98-107); CREATININE SERUM 0.77 MG/DL (0.60-1.30); GFR ESTIMATED > 60; GLUCOSE 140 MG/DL (70-105); SODIUM 139 MMOL/L (135-145); TOTAL PROTEIN 6.1 GM/DL (6.4-8.2)
== END 2019-06-14 | disposition home or self-care (01) ==
LOC: ONC 10:14
PROVIDERS: ATTEND Internal Medicine Hematology & Oncology
DX: C18.3 Malignant neoplasm of hepatic flexure (principal)
CPT/HCPCS: 36415; 80053; 82378; 85025; 99213; 99214

== ENCOUNTER → 2019-05-09 | Outpatient (CLI) | payer MEDICARE ==
--- NOTE | 2019-05-11 10:04 | Diagnostic Imaging Report ---
PET/CT. INDICATION: Colon cancer, subsequent. EXAMINATION: After intravenous administration of 13.18 mCi of F18-FDG, a series of overlapping emission and transmission PET images was obtained. In the coronal, transaxial and sagittal planes, the area imaged extended from the skull base through the upper thighs. FINDINGS: There are no prior PET/CT examinations available for comparison. Reportedly, the patient underwent a colon resection for carcinoma in 1999. CT abdomen/pelvis exam of 09/05/2007 performed at [facility] in [facility] did suggest a small bowel obstruction. On this study, there does appear to be fairly intense hypermetabolic activity along the incision of the anterior abdominal wall near midline. The maximum SUV in this area is 5.6. This finding is unusual given the patient's distant surgical history. However in consultation with Dr. He, I have learned that, in fact, the patient had surgery approximately two months ago and that there is a healing incisional wound. This would account for the increased hypermetabolic activity in this area. There is no other hypermetabolic activity within the abdomen or pelvis to indicate neoplastic disease. There is physiologic activity in the kidneys, bowel, and bladder. There is no other hypermetabolic activity identified. The CT images do show that there are emphysematous changes involving both lungs. The heart size is not enlarged but there are coronary artery calcifications evident. There is a 1.3 cm low-density nodule in the right lobe of the thyroid. This is not hypermetabolic and most likely benign. Even so, ultrasound would be recommended for further study. The calcified fibroid seen on the previous exam in 2007 is again evident and no different. IMPRESSION: 1. There is intense hypermetabolic activity along the incision in the lower abdomen near midline. This would be consistent with the patient's history of a recent surgical procedure. 2. There is no other hypermetabolic activity to indicate the presence of malignancy. 3. The low-density nodule in the right lobe of the thyroid is most likely benign. Even so, ultrasound would be recommended for further study. 4. These results were discussed with Dr. He. Dictated by: Dictated on workstation # [id number]
== END ==
LOC: RAD 09:28
PROVIDERS: ATTEND Internal Medicine Hematology & Oncology
DX: C18.3 Malignant neoplasm of hepatic flexure (principal)

== ENCOUNTER 2019-06-23 09:00 | Outpatient (CLI) | payer MEDICARE ==
[~2019-06-23] VITALS: Ht 165.1 cm; Wt 59.5 kg
== END 2019-06-23 09:24 | disposition home or self-care (01) ==
LOC: PREOP 09:00
PROVIDERS: ATTEND Surgery
DX: Z01.818 Encounter for other preprocedural examination (principal)

== ENCOUNTER 2019-06-26 09:53 | Day surgery (SDC) | payer MEDICARE ==
[~2019-06-26] VITALS: Ht 165 cm; Wt 59.5 kg
[2019-06-26 10:15] VITALS: BP 114/71
[2019-06-26] MEDS ORDERED: PROPOFOL INJECTION 50 ML IV ONE (10:23)
--- NOTE | 2019-06-26 10:27 | Progress Note-Pre Operative ---
Pre-Operative Progress Note H&P Reviewed The H&P was reviewed, patient examined and no changes noted. Time Seen by Provider: 10:25 Date H&P Reviewed: Jun 26, 2019 Time H&P Reviewed: 10:26 Pre-Operative Diagnosis: Colon CA, Venous Insufficiency JOSÉ MIGUEL MOYER DO Jun 26, 2019 10:27
[2019-06-26] MEDS ORDERED: LACTATED RINGERS 1,000 ML IV PRN (10:29)
[2019-06-26] MEDS ORDERED: CLINDAMYCIN 600 MG/50 ML IVPB 50 ML IV ONE ×2 (10:29→10:30)
[2019-06-26] MEDS ORDERED: BUP/EPI 0.5% 1:200,000 (SENSORCAINE) 30 ML VIAL ONE (10:46)
[2019-06-26] MEDS ORDERED: 0.9% SODIUM CHLORIDE PF INJ 20 ML VIAL ONE (10:46)
[2019-06-26] MEDS ORDERED: HEParin (CENTRAL IV FLUSH) 500 UNIT/5 ML SYR ONE (10:46)
[2019-06-26] MEDS ORDERED: fentaNYL 15 MCG/3 ML NS SYRINGE (PACU) ONE (11:17)
--- NOTE | 2019-06-26 11:34 | Progress Note-Post Operative ---
Post-Operative Progess Note Surgeon (s)/Pocket Operator (s) Surgeon JOSÉ MIGUEL MOYER DO Pocket Operator: ROSALIO Rodriguez Pre-Operative Diagnosis Colon CA, Venous Insufficiency Post-Operative Diagnosis same Procedure & Operative Findings Date of Procedure 06/26/19 Procedure Performed/Findings Antonina cath insertion Anesthesia Type IV sedation by REFRACTORY MIXER Estimated Blood Loss Estimated blood loss (mL): scant Specimens/Packing Specimens Removed none JOSÉ MIGUEL MOYER DO Jun 26, 2019 11:34
--- NOTE | 2019-06-26 11:36 | Discharge Inst-Surgical ---
Discharge Inst-Surgical Depart Medication/Instructions New, Converted or Re-Newed RX: Other (no RX needed) Patient Instructions Follow up Appt: Make appointment for 1 week. [phone] Instructions: No lifting greater than 20 pounds. No strenuous activity. May shower in 24 hours, no tub bath or soaking. Use incentive spirometer at home as directed. No Smoking Skin/Wound Care: May remove bandages in am. You need to leave the Dermabond on incision it will fall off on it's own. Symptoms to Report: Appetite Changes, Extremity Discoloration, Numbness/Tingling, Swelling Increased, Bleeding Excessive, Eyesight Changes, Pain Increased, Urine Color Change, Constipation(Persistent), Fever over 101 degree F, Pain/Pressure in chest, Urinating Difficulty, Cough Up/Vomit Blood, Heart Beat Irreg/Pounding, Pain/Pressure in jaw, Cramps in feet or legs, Lightheadedness, Pain/Pressure in shoulder, Diarrhea(Persistent), Memory Changes Suddenly, Questions/Concerns, Weight gain consecutive days, Dizziness/Fainting, Nausea/Vomiting, Shortness of Breath, Weight gain over 2 pounds If questions or concerns contact your physician Or seek help at emergency department. Activity Activity as Tolerated: Yes Activity Instructions: Avoid Stress to Incision Driving Instructions: No Driving/Refer to Dr. Harkins Discharge Diet: No Restrictions Diet After 24 Hours: Clear Liquid if Nauseous If Any Problems/Questions/Issu: Contact Your Physician, Go to Emergency Room Skin/Wound Care Infection Signs and Symptoms: Increased Redness, Foul Odor of Wound, Increased Drainage, Skin Itchy or Has a Rash, Increased Swelling, Temperature Above 101 F Bathing Instructions: Shower Stitches/Lul/Dermabond Dis: Dermabond Ice Pack: Ice On and Off Site JOSÉ MIGUEL MOYER DO Jun 26, 2019 11:36
[2019-06-26 11:41] VITALS: BP 107/61
[2019-06-26] MEDS ORDERED: morphine INJ 10 MG/ML 1ML (SYR OR VIAL) IVP ONE (11:45)
[2019-06-26 11:50] VITALS: BP 113/61
[2019-06-26 12:00] VITALS: BP 120/63
[2019-06-26 12:10] VITALS: BP_SYST 110; BP_SYST 122; BP_DIAS 56; BP_DIAS 73
[2019-06-26 12:40] VITALS: BP_SYST 116; BP_SYST 122; BP_DIAS 56; BP_DIAS 94
--- NOTE | 2019-06-26 12:46 | Anesthesia-General Post-Op ---
MAC Patient Condition Mental Status/LOC: Same as Preop Cardiovascular: Satisfactory Nausea/Vomiting: Absent Respiratory: Satisfactory Pain: Controlled Complications: Absent Post Op Complications Complications None Follow Up Care/Instructions Patient Instructions None needed. Anesthesiology Discharge Order Discharge Order Patient is doing well, no complaints, stable vital signs, no apparent adverse anesthesia problems. No complications reported per nursing. WILFRID VILLASEÑOR CRNA Jun 26, 2019 12:46
--- NOTE | 2019-06-26 13:16 | Diagnostic Imaging Report ---
INDICATION: Fluoroscopy for port placement. FINDINGS: Fluoroscopy was provided in the OR during chest wall port placement. Six seconds of fluoroscopic time was utilized. Images demonstrate a right chest wall port. IMPRESSION: Fluoroscopy for port placement. Dictated by: Dictated on workstation # [id number]
--- NOTE | 2019-06-26 18:42 | OPERATIVE REPORT ---
DATE OF SERVICE: 06/26/2019 PREOPERATIVE DIAGNOSES: Colon cancer, venous insufficiency. POSTOPERATIVE DIAGNOSES: Colon cancer, venous insufficiency. PROCEDURE: Port-A-Cath insertion. SURGEON: Marcos Moyer DO. PROCESS TANK TENDER: Bobby Acosta MS3. ANESTHESIA: IV sedation by YOLANDE. SPECIMENS: None. BLOOD LOSS: Scant. FLUIDS: Per anesthesia. POSTOPERATIVE CONDITION: Stable. INDICATION FOR PROCEDURE: The patient is a 74-year-old female who unfortunately had colon cancer and venous insufficiency; she needs IV access for chemotherapy. PROCEDURE NOTE: After informed consent was obtained, the patient was brought to the operating room, placed on the table in the supine position. She was sterilely prepped and draped in normal fashion. Local lidocaine was used to infiltrate the skin in the right anterior chest wall towards the right clavicle as well as over the right anterior chest wall. The patient was then placed slightly in Trendelenburg. An 18-gauge fine needle was advanced with negative inspiration, cannulated the subclavian vein on first attempt. Good flash of blood, removed the syringe, placed a guidewire using Seldinger technique, it went in easily, checked with fluoroscopy, it was in good position, then made a stab incision over the guidewire. I then made an incision in the anterior chest wall with #11 blade, carried down through the skin into subcutaneous tissue, deepened down to subcutaneous tissue with Bovie electrocautery as well as blunt dissection to the pectoralis major muscle. I then over the guidewire placed a dilator using Seldinger technique, it went in easily, tunneled the catheter from the stab incision. A dilator to the pocket created, checked with fluoroscopy. The dilator was in good position, then removed the inner portion of the dilator and the guidewire and then placed the catheter down the dilator sheath using the Seldinger technique, it went in easily, checked with fluoroscopy, it was in good position. I then attached the catheter to the port, sutured the port to the chest wall with a 3-0 Prolene, accessed the port with Dixon needle, good flash of blood and easily flushed with saline and then aspirated and flushed with 2 mL of heparin. Port was placed into the pocket and then checked with fluoroscopy. Port looked good, good position, no kinks in the catheter. At this point, then sutured in the port, closing the subcutaneous tissue with 3-0 Vicryl, 2 interrupted sutures and closed the skin with 4-0 undyed Monocryl 3 interrupted subcutaneous stitches. Area was cleaned and dried. Dermabond placed over this incision as well as at the stab incision. The patient tolerated the procedure. Sponge, instrument and needle count correct at the end of the case. Job ID: [id number] DocumentID: [id number] Dictated Date: 06/26/2019 11:33:13 [place] Date: 06/26/2019 18:41:24 Dictated By: MARCOS MOYER DO
== END 2019-06-26 12:43 | disposition home or self-care (01) ==
LOC: SDC 09:53
PROVIDERS: ATTEND Surgery
DX: C18.3 Malignant neoplasm of hepatic flexure (principal); I87.2 Venous insufficiency (chronic) (peripheral); I11.9 Hypertensive heart disease without heart failure; E11.9 Type 2 diabetes mellitus without complications; I20.9 Angina pectoris, unspecified; Z95.5 Presence of coronary angioplasty implant and graft; F32.9 Major depressive disorder, single episode, unspecified; M54.5 Low back pain; K21.9 Gastro-esophageal reflux disease without esophagitis; F17.210 Nicotine dependence, cigarettes, uncomplicated; Z86.718 Personal history of other venous thrombosis and embolism; Z79.82 Long term (current) use of aspirin; Z79.899 Other long term (current) drug therapy; Z98.1 Arthrodesis status; Z11.2 Encounter for screening for other bacterial diseases
CPT/HCPCS: 87081

== ENCOUNTER 2019-06-29 12:59 | Outpatient (RCR) | payer MEDICARE ==
[~2019-06-29 12:59] MED LIST changes: +D5W 500 ML IV (CANCER CTR) 500 ML IV SCH; +FOSAPREPITANT DIMEGLUMINE 150 MG in NS (IVPB) CANCER CENTER ONLY 150 ML IV SCH; -IBUP-2055 PO; +IBUP-2473 PO; +OXALIPLATIN 100 MG, OXALIPLATIN (GENERIC) 40 MG in D5W 250 ML IVPB (CANCER CTR) 250 ML IV SCH; +PALONOSETRON HCL 0.25 MG, DEXAMETHASONE INJECTION 10 MG in NS (IVPB) CANCER CENTER 50 ML IV SCH; -TRAM50TA2 PO; +TRM50T PO
[2019-06-29 13:37] LABS: BASOPHILS % (AUTO) 0 % (0-10); EOSINOPHILS # (AUTO) 0.4 10^3/uL (0.0-0.3); EOSINOPHILS % (AUTO) 8 % (0-10); HEMATOCRIT 39 % (35-52); LYMPHOCYTES # (AUTO) 1.3 X 10^3 (1.0-4.0); LYMPHOCYTES % (AUTO) 23 % (12-44); MEAN CORPUSCULAR HEMOGLOBIN 29 PG (25-34); MEAN CORPUSCULAR HGB CONC 33 G/DL (32-36); MEAN CORPUSCULAR VOLUME 86 FL (80-99); MEAN PLATELET VOLUME 9.3 FL (7.4-10.4); MONOCYTES # (AUTO) 0.4 X 10^3 (0.0-1.0); MONOCYTES % (AUTO) 8 % (0-12); NEUTROPHILS # (AUTO) 3.5 X 10^3 (1.8-7.8); NEUTROPHILS % (AUTO) 62 % (42-75); PLATELET COUNT 287 10^3/uL (130-400); RED CELL DISTRIBUTION WIDTH 15.6 % (10.0-14.5); WHITE BLOOD COUNT 5.7 10^3/uL (4.3-11.0)
[2019-06-29 13:54] LABS: ALANINE AMINOTRANSFERASE 14 U/L (0-55); ALBUMIN 3.9 GM/DL (3.2-4.5); ALKALINE PHOSPHATASE 55 U/L (40-136); BILIRUBIN,TOTAL 0.2 MG/DL (0.1-1.0); BUN/CREATININE RATIO 16; CALCIUM 9.5 MG/DL (8.5-10.1); CARBON DIOXIDE 27 MMOL/L (21-32); CHLORIDE 103 MMOL/L (98-107); CREATININE SERUM 0.89 MG/DL (0.60-1.30); GFR ESTIMATED > 60; GLUCOSE 129 MG/DL (70-105); POTASSIUM 4.3 MMOL/L (3.6-5.0); SODIUM 140 MMOL/L (135-145); TOTAL PROTEIN 6.6 GM/DL (6.4-8.2)
[2019-07-19 10:39] LABS: BASOPHILS % (AUTO) 0 % (0-10); EOSINOPHILS # (AUTO) 0.2 10^3/uL (0.0-0.3); EOSINOPHILS % (AUTO) 3 % (0-10); HEMATOCRIT 36 % (35-52); LYMPHOCYTES # (AUTO) 1.3 X 10^3 (1.0-4.0); LYMPHOCYTES % (AUTO) 21 % (12-44); MEAN CORPUSCULAR HEMOGLOBIN 29 PG (25-34); MEAN CORPUSCULAR HGB CONC 34 G/DL (32-36); MEAN CORPUSCULAR VOLUME 87 FL (80-99); MEAN PLATELET VOLUME 9.1 FL (7.4-10.4); MONOCYTES # (AUTO) 0.5 X 10^3 (0.0-1.0); MONOCYTES % (AUTO) 9 % (0-12); NEUTROPHILS # (AUTO) 4.2 X 10^3 (1.8-7.8); NEUTROPHILS % (AUTO) 68 % (42-75); PLATELET COUNT 272 10^3/uL (130-400); RED CELL DISTRIBUTION WIDTH 16.3 % (10.0-14.5); WHITE BLOOD COUNT 6.2 10^3/uL (4.3-11.0)
[2019-07-19 11:00] LABS: ALANINE AMINOTRANSFERASE 17 U/L (0-55); ALBUMIN 3.6 GM/DL (3.2-4.5); ALKALINE PHOSPHATASE 47 U/L (40-136); BILIRUBIN,TOTAL 0.1 MG/DL (0.1-1.0); BUN/CREATININE RATIO 21; CALCIUM 8.8 MG/DL (8.5-10.1); CARBON DIOXIDE 23 MMOL/L (21-32); CHLORIDE 108 MMOL/L (98-107); CREATININE SERUM 0.77 MG/DL (0.60-1.30); GFR ESTIMATED > 60; GLUCOSE 110 MG/DL (70-105); MAGNESIUM 1.6 MG/DL (1.6-2.4); SODIUM 139 MMOL/L (135-145)
== END 2019-07-19 09:52 | disposition home or self-care (01) ==
LOC: ONC 12:59
PROVIDERS: ATTEND Internal Medicine Hematology & Oncology
DX: Z51.11 Encounter for antineoplastic chemotherapy (principal); C18.3 Malignant neoplasm of hepatic flexure
CPT/HCPCS: 36591; 80053; 82378; 83735; 85025; 96367; 96375; 96413; 99213

== ENCOUNTER → 2019-07-28 | Outpatient (CLI) | payer MEDICARE ==
[~2019-07-28] MED LIST changes: -D5W 500 ML IV (CANCER CTR) 500 ML IV SCH; -FOSAPREPITANT DIMEGLUMINE 150 MG in NS (IVPB) CANCER CENTER ONLY 150 ML IV SCH; -OXALIPLATIN 100 MG, OXALIPLATIN (GENERIC) 40 MG in D5W 250 ML IVPB (CANCER CTR) 250 ML IV SCH; -PALONOSETRON HCL 0.25 MG, DEXAMETHASONE INJECTION 10 MG in NS (IVPB) CANCER CENTER 50 ML IV SCH
== END ==
LOC: LAB FS 10:33
PROVIDERS: ATTEND Nurse Practitioner Adult Health
DX: R19.7 Diarrhea, unspecified (principal); C18.3 Malignant neoplasm of hepatic flexure
CPT/HCPCS: 87324; 87449

== ENCOUNTER 2019-08-17 12:07 | Outpatient (RCR) | payer MEDICARE ==
[~2019-08-17 12:07] MED LIST changes: +ACHD5005 PO; -HYDR-3812 PO; -ROPI0.5T2 PO; +ROPI0.5T4 PO
[2019-08-17 12:43] LABS: HEMATOCRIT 38 % (35-52); HEMOGLOBIN 12.7 G/DL (11.5-16.0); MEAN CORPUSCULAR HEMOGLOBIN 30 PG (25-34); WHITE BLOOD COUNT 10.3 10^3/uL (4.3-11.0)
[2019-08-17 12:44] LABS: BASOPHILS % (AUTO) 0 % (0-10); EOSINOPHILS # (AUTO) 0.2 10^3/uL (0.0-0.3); EOSINOPHILS % (AUTO) 2 % (0-10); LYMPHOCYTES # (AUTO) 1.1 X 10^3 (1.0-4.0); LYMPHOCYTES % (AUTO) 11 % (12-44); MEAN CORPUSCULAR HGB CONC 33 G/DL (32-36); MEAN CORPUSCULAR VOLUME 91 FL (80-99); MONOCYTES # (AUTO) 1.2 X 10^3 (0.0-1.0); MONOCYTES % (AUTO) 12 % (0-12); NEUTROPHILS # (AUTO) 7.7 X 10^3 (1.8-7.8); NEUTROPHILS % (AUTO) 74 % (42-75); PLATELET COUNT 343 10^3/uL (130-400); RED CELL DISTRIBUTION WIDTH 15.8 % (10.0-14.5)
[2019-08-17 12:58] LABS: BUN/CREATININE RATIO 15; CALCIUM 9.7 MG/DL (8.5-10.1); CARBON DIOXIDE 28 MMOL/L (21-32); CHLORIDE 97 MMOL/L (98-107); CREATININE SERUM 0.68 MG/DL (0.60-1.30); GFR ESTIMATED > 60; GLUCOSE 123 MG/DL (70-105); POTASSIUM 3.8 MMOL/L (3.6-5.0); SODIUM 138 MMOL/L (135-145)
== END 2019-11-15 | disposition home or self-care (01) ==
LOC: LAB FS 12:07
PROVIDERS: ATTEND Internal Medicine Hematology & Oncology
DX: C18.3 Malignant neoplasm of hepatic flexure (principal)
CPT/HCPCS: 36415; 80048; 85025

== ENCOUNTER → 2019-09-07 | Outpatient (CLI) | payer MEDICARE ==
[2019-09-07 12:03] LABS: HEMATOCRIT 45 % (35-52); MEAN CORPUSCULAR HEMOGLOBIN 30 PG (25-34); MEAN CORPUSCULAR HGB CONC 31 G/DL (32-36); MEAN CORPUSCULAR VOLUME 97 FL (80-99); MEAN PLATELET VOLUME 9.5 FL (7.4-10.4); NEUTROPHILS % (AUTO) 61 % (42-75); PLATELET COUNT 346 10^3/uL (130-400); RED CELL DISTRIBUTION WIDTH 15.3 % (10.0-14.5); WHITE BLOOD COUNT 5.3 10^3/uL (4.3-11.0)
[2019-09-07 12:04] LABS: BASOPHILS # (AUTO) 0.1 10^3/uL (0.0-0.1); BASOPHILS % (AUTO) 1 % (0-10); EOSINOPHILS # (AUTO) 0.2 10^3/uL (0.0-0.3); EOSINOPHILS % (AUTO) 3 % (0-10); LYMPHOCYTES # (AUTO) 1.4 X 10^3 (1.0-4.0); LYMPHOCYTES % (AUTO) 26 % (12-44); MONOCYTES # (AUTO) 0.5 X 10^3 (0.0-1.0); MONOCYTES % (AUTO) 9 % (0-12); NEUTROPHILS # (AUTO) 3.2 X 10^3 (1.8-7.8)
[2019-09-07 12:20] LABS: BUN/CREATININE RATIO 19; CALCIUM 9.2 MG/DL (8.5-10.1); CARBON DIOXIDE 24 MMOL/L (21-32); CHLORIDE 99 MMOL/L (98-107); CREATININE SERUM 0.73 MG/DL (0.60-1.30); GFR ESTIMATED > 60; GLUCOSE 115 MG/DL (70-105); POTASSIUM 4.5 MMOL/L (3.6-5.0); SODIUM 136 MMOL/L (135-145)
== END ==
LOC: LAB FS 11:27
PROVIDERS: ATTEND Internal Medicine Hematology & Oncology
DX: C18.3 Malignant neoplasm of hepatic flexure (principal)
CPT/HCPCS: 36415; 80048; 85025

== ENCOUNTER 2019-09-14 12:39 | Outpatient (RCR) | payer MEDICARE ==
[2019-09-14 13:01] LABS: BASOPHILS % (AUTO) 0 % (0-10); EOSINOPHILS # (AUTO) 0.4 10^3/uL (0.0-0.3); EOSINOPHILS % (AUTO) 6 % (0-10); HEMATOCRIT 37 % (35-52); HEMOGLOBIN 11.9 G/DL (11.5-16.0); LYMPHOCYTES # (AUTO) 1.5 X 10^3 (1.0-4.0); LYMPHOCYTES % (AUTO) 24 % (12-44); MEAN CORPUSCULAR HEMOGLOBIN 31 PG (25-34); MEAN CORPUSCULAR HGB CONC 33 G/DL (32-36); MEAN CORPUSCULAR VOLUME 95 FL (80-99); MEAN PLATELET VOLUME 9.4 FL (7.4-10.4); MONOCYTES # (AUTO) 0.5 X 10^3 (0.0-1.0); MONOCYTES % (AUTO) 9 % (0-12); NEUTROPHILS # (AUTO) 3.8 X 10^3 (1.8-7.8); NEUTROPHILS % (AUTO) 61 % (42-75); PLATELET COUNT 223 10^3/uL (130-400); RED CELL DISTRIBUTION WIDTH 17.3 % (10.0-14.5); WHITE BLOOD COUNT 6.3 10^3/uL (4.3-11.0)
[2019-09-14 13:38] LABS: BUN/CREATININE RATIO 19; CALCIUM 9.2 MG/DL (8.5-10.1); CARBON DIOXIDE 26 MMOL/L (21-32); CHLORIDE 107 MMOL/L (98-107); CREATININE SERUM 0.86 MG/DL (0.60-1.30); GFR ESTIMATED > 60; GLUCOSE 105 MG/DL (70-105); POTASSIUM 3.9 MMOL/L (3.6-5.0); SODIUM 143 MMOL/L (135-145)
== END 2019-12-13 | disposition home or self-care (01) ==
LOC: LAB FS 12:39
PROVIDERS: ATTEND Internal Medicine Hematology & Oncology
DX: C18.3 Malignant neoplasm of hepatic flexure (principal)
CPT/HCPCS: 36415; 80048; 85025

== ENCOUNTER → 2019-10-03 | Outpatient (CLI) | payer MEDICARE ==
--- NOTE | 2019-10-03 13:04 | Diagnostic Imaging Report ---
INDICATION: Colon carcinoma, subsequent restaging. Serum blood glucose level at time of injection 92 mg/dL. The patient was administered 15.2 mCi F-18 FDG intravenously and PET imaging was performed from the top of skull to mid thighs. Noncontrast CT was also performed for attenuation correction and anatomic correlation. Correlation is made with prior PET/CT study from 05/09/2019. There is symmetric activity within the brain. The soft tissues of the neck are unremarkable. No hypermetabolic foci in the chest are identified. There is no hypermetabolic mediastinal or hilar lymphadenopathy. Pulmonary parenchyma is without hypermetabolic foci. Imaging through the abdomen and pelvis demonstrates physiologic activity within the gastrointestinal and genitourinary tract. Previously noted hypermetabolism involving the midline abdominal wall incision has resolved. No suspicious abnormality is seen. IMPRESSION: Unremarkable PET/CT study. No suspicious hypermetabolism is identified. Dictated by: Dictated on workstation # [id number]
== END ==
LOC: RAD 09:27
PROVIDERS: ATTEND Nurse Practitioner Adult Health
DX: C18.9 Malignant neoplasm of colon, unspecified (principal)

== ENCOUNTER 2019-10-05 12:40 | Outpatient (RCR) | payer MEDICARE ==
[2019-07-27 10:28] LABS: BASOPHILS % (AUTO) 1 % (0-10); EOSINOPHILS # (AUTO) 0.4 10^3/uL (0.0-0.3); EOSINOPHILS % (AUTO) 7 % (0-10); HEMATOCRIT 37 % (35-52); HEMOGLOBIN 12.3 G/DL (11.5-16.0); LYMPHOCYTES # (AUTO) 1.3 X 10^3 (1.0-4.0); LYMPHOCYTES % (AUTO) 23 % (12-44); MEAN CORPUSCULAR HEMOGLOBIN 29 PG (25-34); MEAN CORPUSCULAR HGB CONC 33 G/DL (32-36); MEAN CORPUSCULAR VOLUME 89 FL (80-99); MEAN PLATELET VOLUME 9.2 FL (7.4-10.4); MONOCYTES # (AUTO) 0.6 X 10^3 (0.0-1.0); MONOCYTES % (AUTO) 11 % (0-12); NEUTROPHILS # (AUTO) 3.2 X 10^3 (1.8-7.8); NEUTROPHILS % (AUTO) 58 % (42-75); PLATELET COUNT 180 10^3/uL (130-400); RED CELL DISTRIBUTION WIDTH 18.7 % (10.0-14.5); WHITE BLOOD COUNT 5.6 10^3/uL (4.3-11.0)
[2019-07-27 10:46] LABS: BUN/CREATININE RATIO 17; CALCIUM 8.6 MG/DL (8.5-10.1); CARBON DIOXIDE 22 MMOL/L (21-32); CHLORIDE 113 MMOL/L (98-107); CREATININE SERUM 0.81 MG/DL (0.60-1.30); GFR ESTIMATED > 60; GLUCOSE 119 MG/DL (70-105); MAGNESIUM 1.7 MG/DL (1.6-2.4); POTASSIUM 4.5 MMOL/L (3.6-5.0); SODIUM 140 MMOL/L (135-145)
[2019-08-10 13:11] LABS: BASOPHILS % (AUTO) 0 % (0-10); EOSINOPHILS # (AUTO) 0.3 10^3/uL (0.0-0.3); EOSINOPHILS % (AUTO) 5 % (0-10); HEMATOCRIT 37 % (35-52); HEMOGLOBIN 12.1 G/DL (11.5-16.0); LYMPHOCYTES # (AUTO) 1.2 X 10^3 (1.0-4.0); LYMPHOCYTES % (AUTO) 21 % (12-44); MEAN CORPUSCULAR HEMOGLOBIN 30 PG (25-34); MEAN CORPUSCULAR HGB CONC 33 G/DL (32-36); MEAN CORPUSCULAR VOLUME 92 FL (80-99); MEAN PLATELET VOLUME 9.3 FL (7.4-10.4); MONOCYTES # (AUTO) 0.6 X 10^3 (0.0-1.0); MONOCYTES % (AUTO) 11 % (0-12); NEUTROPHILS # (AUTO) 3.7 X 10^3 (1.8-7.8); NEUTROPHILS % (AUTO) 63 % (42-75); PLATELET COUNT 217 10^3/uL (130-400); RED CELL DISTRIBUTION WIDTH 17.9 % (10.0-14.5); WHITE BLOOD COUNT 5.9 10^3/uL (4.3-11.0)
[2019-08-10 13:37] LABS: ALANINE AMINOTRANSFERASE 21 U/L (0-55); ALBUMIN 3.6 GM/DL (3.2-4.5); ALKALINE PHOSPHATASE 62 U/L (40-136); BILIRUBIN,TOTAL 0.1 MG/DL (0.1-1.0); BUN/CREATININE RATIO 13; CALCIUM 8.7 MG/DL (8.5-10.1); CARBON DIOXIDE 28 MMOL/L (21-32); CHLORIDE 107 MMOL/L (98-107); CREATININE SERUM 0.75 MG/DL (0.60-1.30); GFR ESTIMATED > 60; GLUCOSE 110 MG/DL (70-105); POTASSIUM 4.1 MMOL/L (3.6-5.0); SODIUM 140 MMOL/L (135-145)
[2019-08-31 12:51] LABS: BASOPHILS % (AUTO) 0 % (0-10); EOSINOPHILS # (AUTO) 0.2 10^3/uL (0.0-0.3); EOSINOPHILS % (AUTO) 3 % (0-10); HEMATOCRIT 38 % (35-52); HEMOGLOBIN 12.1 G/DL (11.5-16.0); LYMPHOCYTES # (AUTO) 1.4 X 10^3 (1.0-4.0); LYMPHOCYTES % (AUTO) 22 % (12-44); MEAN CORPUSCULAR HEMOGLOBIN 30 PG (25-34); MEAN CORPUSCULAR HGB CONC 32 G/DL (32-36); MEAN CORPUSCULAR VOLUME 93 FL (80-99); MEAN PLATELET VOLUME 9.1 FL (7.4-10.4); MONOCYTES # (AUTO) 0.5 X 10^3 (0.0-1.0); MONOCYTES % (AUTO) 8 % (0-12); NEUTROPHILS # (AUTO) 4.4 X 10^3 (1.8-7.8); NEUTROPHILS % (AUTO) 68 % (42-75); PLATELET COUNT 386 10^3/uL (130-400); RED CELL DISTRIBUTION WIDTH 15.5 % (10.0-14.5); WHITE BLOOD COUNT 6.4 10^3/uL (4.3-11.0)
[2019-08-31 13:05] LABS: ALANINE AMINOTRANSFERASE 18 U/L (0-55); ALBUMIN 3.3 GM/DL (3.2-4.5); ALKALINE PHOSPHATASE 73 U/L (40-136); BILIRUBIN,TOTAL 0.1 MG/DL (0.1-1.0); BUN/CREATININE RATIO 14; CALCIUM 8.8 MG/DL (8.5-10.1); CARBON DIOXIDE 27 MMOL/L (21-32); CHLORIDE 104 MMOL/L (98-107); CREATININE SERUM 0.79 MG/DL (0.60-1.30); GFR ESTIMATED > 60; GLUCOSE 129 MG/DL (70-105); MAGNESIUM 1.6 MG/DL (1.6-2.4); POTASSIUM 4.3 MMOL/L (3.6-5.0); SODIUM 138 MMOL/L (135-145); TOTAL PROTEIN 6.1 GM/DL (6.4-8.2)
[2019-09-21 13:29] LABS: BASOPHILS % (AUTO) 1 % (0-10); EOSINOPHILS # (AUTO) 0.2 10^3/uL (0.0-0.3); EOSINOPHILS % (AUTO) 4 % (0-10); HEMATOCRIT 40 % (35-52); HEMOGLOBIN 13.4 G/DL (11.5-16.0); LYMPHOCYTES # (AUTO) 1.4 X 10^3 (1.0-4.0); LYMPHOCYTES % (AUTO) 27 % (12-44); MEAN CORPUSCULAR HEMOGLOBIN 32 PG (25-34); MEAN CORPUSCULAR HGB CONC 33 G/DL (32-36); MEAN CORPUSCULAR VOLUME 96 FL (80-99); MEAN PLATELET VOLUME 9.4 FL (7.4-10.4); MONOCYTES # (AUTO) 0.7 X 10^3 (0.0-1.0); MONOCYTES % (AUTO) 13 % (0-12); NEUTROPHILS % (AUTO) 56 % (42-75); PLATELET COUNT 186 10^3/uL (130-400); RED CELL DISTRIBUTION WIDTH 18.6 % (10.0-14.5); WHITE BLOOD COUNT 5.4 10^3/uL (4.3-11.0)
[2019-09-21 13:49] LABS: ALANINE AMINOTRANSFERASE 19 U/L (0-55); ALBUMIN 3.8 GM/DL (3.2-4.5); ALKALINE PHOSPHATASE 68 U/L (40-136); BILIRUBIN,TOTAL 0.2 MG/DL (0.1-1.0); BUN/CREATININE RATIO 15; CARBON DIOXIDE 25 MMOL/L (21-32); CHLORIDE 103 MMOL/L (98-107); CREATININE SERUM 0.82 MG/DL (0.60-1.30); GFR ESTIMATED > 60; GLUCOSE 114 MG/DL (70-105); MAGNESIUM 1.7 MG/DL (1.6-2.4); POTASSIUM 4.2 MMOL/L (3.6-5.0); SODIUM 138 MMOL/L (135-145); TOTAL PROTEIN 6.3 GM/DL (6.4-8.2)
[~2019-10-05 12:40] MED LIST changes: +D5W 500 ML IV (CANCER CTR) 500 ML IV SCH; +FOSAPREPITANT DIMEGLUMINE 150 MG in NS (IVPB) CANCER CENTER ONLY 150 ML IV SCH; +MAGNESIUM SULFATE (CANCER CTR) 1 GM in NS (IVPB) CANCER CENTER 50 ML IV ONE; +NS IV 1000 ML (CANCER CTR) 1,000 ML ONE; +OXALIPLATIN 100 MG, OXALIPLATIN (GENERIC) 20 MG in D5W 250 ML IVPB (CANCER CTR) 250 ML IV SCH; +OXALIPLATIN 100 MG, OXALIPLATIN (GENERIC) 40 MG in D5W 250 ML IVPB (CANCER CTR) 250 ML IV SCH; +PALONOSETRON HCL 0.25 MG, DEXAMETHASONE INJECTION 10 MG in NS (IVPB) CANCER CENTER 50 ML IV SCH
== END 2019-10-17 | disposition home or self-care (01) ==
LOC: ONC 12:40
PROVIDERS: ATTEND Internal Medicine Hematology & Oncology
DX: Z51.11 Encounter for antineoplastic chemotherapy (principal); C18.3 Malignant neoplasm of hepatic flexure
CPT/HCPCS: 36591; 80048; 80053; 82378; 83735; 85025; 96361; 96365; 96367; 96375; 96413; 99213

== ENCOUNTER 2019-12-28 12:51 | Outpatient (RCR) | payer MEDICARE ==
[2019-12-14 11:21] LABS: BASOPHILS % (AUTO) 0 % (0-10); EOSINOPHILS # (AUTO) 0.2 10^3/uL (0.0-0.3); EOSINOPHILS % (AUTO) 4 % (0-10); HEMATOCRIT 40 % (35-52); HEMOGLOBIN 13.7 G/DL (11.5-16.0); LYMPHOCYTES # (AUTO) 1.4 X 10^3 (1.0-4.0); LYMPHOCYTES % (AUTO) 22 % (12-44); MEAN CORPUSCULAR HEMOGLOBIN 32 PG (25-34); MEAN CORPUSCULAR HGB CONC 34 G/DL (32-36); MEAN CORPUSCULAR VOLUME 92 FL (80-99); MEAN PLATELET VOLUME 9.1 FL (7.4-10.4); MONOCYTES # (AUTO) 0.6 X 10^3 (0.0-1.0); MONOCYTES % (AUTO) 10 % (0-12); NEUTROPHILS % (AUTO) 64 % (42-75); PLATELET COUNT 231 10^3/uL (130-400); WHITE BLOOD COUNT 6.2 10^3/uL (4.3-11.0)
[2019-12-14 11:41] LABS: ALANINE AMINOTRANSFERASE 19 U/L (0-55); ALBUMIN 3.7 GM/DL (3.2-4.5); ALKALINE PHOSPHATASE 60 U/L (40-136); BILIRUBIN,TOTAL 0.2 MG/DL (0.1-1.0); BUN/CREATININE RATIO 17; CALCIUM 8.6 MG/DL (8.5-10.1); CARBON DIOXIDE 23 MMOL/L (21-32); CHLORIDE 107 MMOL/L (98-107); CREATININE SERUM 0.77 MG/DL (0.60-1.30); GFR ESTIMATED > 60; GLUCOSE 105 MG/DL (70-105); SODIUM 140 MMOL/L (135-145)
[~2019-12-28 12:51] MED LIST changes: -D5W 500 ML IV (CANCER CTR) 500 ML IV SCH; -FOSAPREPITANT DIMEGLUMINE 150 MG in NS (IVPB) CANCER CENTER ONLY 150 ML IV SCH; -MAGNESIUM SULFATE (CANCER CTR) 1 GM in NS (IVPB) CANCER CENTER 50 ML IV ONE; -NS IV 1000 ML (CANCER CTR) 1,000 ML ONE; -OXALIPLATIN 100 MG, OXALIPLATIN (GENERIC) 20 MG in D5W 250 ML IVPB (CANCER CTR) 250 ML IV SCH; -OXALIPLATIN 100 MG, OXALIPLATIN (GENERIC) 40 MG in D5W 250 ML IVPB (CANCER CTR) 250 ML IV SCH; -PALONOSETRON HCL 0.25 MG, DEXAMETHASONE INJECTION 10 MG in NS (IVPB) CANCER CENTER 50 ML IV SCH
== END 2020-03-13 | disposition home or self-care (01) ==
LOC: ONC 12:51
PROVIDERS: ATTEND Internal Medicine Hematology & Oncology
DX: C18.9 Malignant neoplasm of colon, unspecified (principal)
CPT/HCPCS: 36591; 80053; 82378; 85025; 99213

== ENCOUNTER → 2020-03-21 | Outpatient (CLI) | payer MEDICARE ==
[~2020-03-21] MED LIST changes: -PANT40TA3 PO; +PANT40TA52 PO
[2020-03-21 12:22] LABS: HEMATOCRIT 43 % (35-52); HEMOGLOBIN 14.4 G/DL (11.5-16.0); MEAN CORPUSCULAR HEMOGLOBIN 32 PG (25-34); MEAN CORPUSCULAR HGB CONC 34 G/DL (32-36); MEAN CORPUSCULAR VOLUME 94 FL (80-99); MEAN PLATELET VOLUME 9.2 FL (7.4-10.4); NEUTROPHILS % (AUTO) 63 % (42-75); PLATELET COUNT 252 10^3/uL (130-400); WHITE BLOOD COUNT 5.2 10^3/uL (4.3-11.0)
[2020-03-21 12:23] LABS: BASOPHILS % (AUTO) 1 % (0-10); EOSINOPHILS # (AUTO) 0.3 10^3/uL (0.0-0.3); EOSINOPHILS % (AUTO) 5 % (0-10); LYMPHOCYTES # (AUTO) 1.1 X 10^3 (1.0-4.0); LYMPHOCYTES % (AUTO) 22 % (12-44); MONOCYTES # (AUTO) 0.5 X 10^3 (0.0-1.0); MONOCYTES % (AUTO) 9 % (0-12); NEUTROPHILS # (AUTO) 3.3 X 10^3 (1.8-7.8)
[2020-03-21 13:06] LABS: SODIUM 138 MMOL/L (135-145)
[2020-03-21 13:07] LABS: ALANINE AMINOTRANSFERASE 68 U/L (0-55); ALBUMIN 3.9 GM/DL (3.2-4.5); ALKALINE PHOSPHATASE 76 U/L (40-136); BILIRUBIN,TOTAL 0.2 MG/DL (0.1-1.0); BUN/CREATININE RATIO 19; CALCIUM 9.1 MG/DL (8.5-10.1); CARBON DIOXIDE 28 MMOL/L (21-32); CHLORIDE 101 MMOL/L (98-107); CREATININE SERUM 0.75 MG/DL (0.60-1.30); GFR ESTIMATED > 60; GLUCOSE 129 MG/DL (70-105); POTASSIUM 3.9 MMOL/L (3.6-5.0); TOTAL PROTEIN 6.3 GM/DL (6.4-8.2)
== END ==
LOC: LAB FS 12:02
PROVIDERS: ATTEND Nurse Practitioner Adult Health
DX: C18.3 Malignant neoplasm of hepatic flexure (principal); Z85.038 Personal history of other malignant neoplasm of large intestine
CPT/HCPCS: 36415; 80053; 82378; 85025

== ENCOUNTER 2020-04-04 13:44 | Outpatient (RCR) | payer MEDICARE | END 2020-07-03 | disposition home or self-care (01) | LOC: ONC 13:44 | PROVIDERS: ATTEND Internal Medicine Hematology & Oncology | DX: Z45.2 Encounter for adjustment and management of vascular access device (principal); C18.9 Malignant neoplasm of colon, unspecified; E11.9 Type 2 diabetes mellitus without complications; I11.9 Hypertensive heart disease without heart failure; Z98.890 Other specified postprocedural states | CPT/HCPCS: 96523; G0463 ==

== ENCOUNTER → 2020-05-24 | Outpatient (CLI) | payer MEDICARE ==
[2020-05-24 11:42] LABS: ALANINE AMINOTRANSFERASE 26 U/L (0-55); ALBUMIN 4.2 GM/DL (3.2-4.5); ALKALINE PHOSPHATASE 78 U/L (40-136); BILIRUBIN,TOTAL 0.2 MG/DL (0.1-1.0); BUN/CREATININE RATIO 16; CALCIUM 9.1 MG/DL (8.5-10.1); CARBON DIOXIDE 27 MMOL/L (21-32); CHLORIDE 101 MMOL/L (98-107); CREATININE SERUM 0.86 MG/DL (0.60-1.30); GFR ESTIMATED > 60; GLUCOSE 101 MG/DL (70-105); POTASSIUM 4.1 MMOL/L (3.6-5.0); SODIUM 140 MMOL/L (135-145); TOTAL PROTEIN 6.3 GM/DL (6.4-8.2)
== END ==
LOC: LAB FS 10:43
PROVIDERS: ATTEND Nurse Practitioner Adult Health
DX: C18.9 Malignant neoplasm of colon, unspecified (principal)
CPT/HCPCS: 36415; 80053; 82378

== ENCOUNTER → 2020-07-04 | Outpatient (CLI) | payer MEDICARE ==
[2020-07-04 11:40] LABS: BASOPHILS % (AUTO) 1 % (0-10); EOSINOPHILS # (AUTO) 0.2 10^3/uL (0.0-0.3); EOSINOPHILS % (AUTO) 3 % (0-10); HEMATOCRIT 43 % (35-52); HEMOGLOBIN 13.9 G/DL (11.5-16.0); LYMPHOCYTES # (AUTO) 1.1 X 10^3 (1.0-4.0); LYMPHOCYTES % (AUTO) 22 % (12-44); MEAN CORPUSCULAR HEMOGLOBIN 31 PG (25-34); MEAN CORPUSCULAR HGB CONC 32 G/DL (32-36); MEAN CORPUSCULAR VOLUME 96 FL (80-99); MEAN PLATELET VOLUME 9.3 FL (7.4-10.4); MONOCYTES # (AUTO) 0.5 X 10^3 (0.0-1.0); MONOCYTES % (AUTO) 10 % (0-12); NEUTROPHILS # (AUTO) 2.9 X 10^3 (1.8-7.8); NEUTROPHILS % (AUTO) 63 % (42-75); PLATELET COUNT 258 10^3/uL (130-400); WHITE BLOOD COUNT 4.7 10^3/uL (4.3-11.0)
[2020-07-04 12:06] LABS: ALANINE AMINOTRANSFERASE 23 U/L (0-55); ALBUMIN 3.9 GM/DL (3.2-4.5); ALKALINE PHOSPHATASE 71 U/L (40-136); BILIRUBIN,TOTAL 0.2 MG/DL (0.1-1.0); BUN/CREATININE RATIO 15; CALCIUM 8.9 MG/DL (8.5-10.1); CARBON DIOXIDE 27 MMOL/L (21-32); CHLORIDE 102 MMOL/L (98-107); CREATININE SERUM 0.73 MG/DL (0.60-1.30); GFR ESTIMATED > 60; GLUCOSE 122 MG/DL (70-105); POTASSIUM 4.3 MMOL/L (3.6-5.0); SODIUM 138 MMOL/L (135-145); TOTAL PROTEIN 6.1 GM/DL (6.4-8.2)
== END ==
LOC: LAB FS 10:09
PROVIDERS: ATTEND Nurse Practitioner Adult Health
DX: C18.3 Malignant neoplasm of hepatic flexure (principal)
CPT/HCPCS: 36415; 80053; 82378; 85025

== ENCOUNTER 2020-07-11 10:27 | Outpatient (RCR) | payer MEDICARE ==
[~2020-07-11 10:27] MED LIST changes: -ISM60TCR PO; +ISOS60TA63 PO
== END 2020-10-09 | disposition home or self-care (01) ==
LOC: ONC 10:27
PROVIDERS: ATTEND Internal Medicine Hematology & Oncology
DX: Z45.2 Encounter for adjustment and management of vascular access device (principal); C18.9 Malignant neoplasm of colon, unspecified; E11.9 Type 2 diabetes mellitus without complications; I11.9 Hypertensive heart disease without heart failure; Z98.890 Other specified postprocedural states; Z85.038 Personal history of other malignant neoplasm of large intestine; Z72.0 Tobacco use
CPT/HCPCS: 96523; G0463

== ENCOUNTER → 2020-10-11 | Outpatient (CLI) | payer MEDICARE ==
[2020-10-11 12:01] LABS: BASOPHILS % (AUTO) 1 % (0-10); EOSINOPHILS # (AUTO) 0.1 10^3/uL (0.0-0.3); EOSINOPHILS % (AUTO) 2 % (0-10); HEMATOCRIT 41 % (35-52); HEMOGLOBIN 14.1 G/DL (11.5-16.0); LYMPHOCYTES % (AUTO) 19 % (12-44); MEAN CORPUSCULAR HEMOGLOBIN 32 PG (25-34); MEAN CORPUSCULAR HGB CONC 35 G/DL (32-36); MEAN CORPUSCULAR VOLUME 91 FL (80-99); MEAN PLATELET VOLUME 9.2 FL (7.4-10.4); MONOCYTES # (AUTO) 0.5 X 10^3 (0.0-1.0); MONOCYTES % (AUTO) 10 % (0-12); NEUTROPHILS # (AUTO) 3.5 X 10^3 (1.8-7.8); NEUTROPHILS % (AUTO) 68 % (42-75); PLATELET COUNT 259 10^3/uL (130-400); WHITE BLOOD COUNT 5.2 10^3/uL (4.3-11.0)
[2020-10-11 12:23] LABS: CARBON DIOXIDE 29 MMOL/L (21-32); CHLORIDE 103 MMOL/L (98-107); POTASSIUM 3.9 MMOL/L (3.6-5.0); SODIUM 139 MMOL/L (135-145)
[2020-10-11 12:24] LABS: ALANINE AMINOTRANSFERASE 51 U/L (0-55); ALBUMIN 3.9 GM/DL (3.2-4.5); ALKALINE PHOSPHATASE 83 U/L (40-136); BILIRUBIN,TOTAL 0.2 MG/DL (0.1-1.0); BUN/CREATININE RATIO 15; CREATININE SERUM 0.78 MG/DL (0.60-1.30); GFR ESTIMATED > 60; GLUCOSE 107 MG/DL (70-105); TOTAL PROTEIN 6.2 GM/DL (6.4-8.2)
== END ==
LOC: LAB FS 11:17
PROVIDERS: ATTEND Internal Medicine Hematology & Oncology
DX: C18.9 Malignant neoplasm of colon, unspecified (principal)
CPT/HCPCS: 36415; 80053; 82378; 85025

== ENCOUNTER 2020-10-17 14:08 | Outpatient (RCR) | payer MEDICARE | END 2021-01-15 | disposition home or self-care (01) | LOC: ONC 14:08 | PROVIDERS: ATTEND Internal Medicine Hematology & Oncology | DX: Z45.2 Encounter for adjustment and management of vascular access device (principal); C18.9 Malignant neoplasm of colon, unspecified; E11.9 Type 2 diabetes mellitus without complications; I11.9 Hypertensive heart disease without heart failure; Z98.890 Other specified postprocedural states; Z72.0 Tobacco use | CPT/HCPCS: 96523; G0463 ==

== ENCOUNTER 2020-11-04 05:51 | Outpatient (CLI) | payer MEDICARE ==
[~2020-11-04] VITALS: Ht 165.1 cm; Wt 65.1 kg
== END 2020-11-05 07:38 | disposition home or self-care (01) ==
LOC: PREOP 05:51
PROVIDERS: ATTEND Surgery
DX: Z01.818 Encounter for other preprocedural examination (principal)

== ENCOUNTER 2020-11-11 07:10 | Day surgery (SDC) | payer MEDICARE ==
[~2020-11-11] VITALS: Ht 165.1 cm; Wt 65.1 kg
[2020-11-11] MEDS ORDERED: LACTATED RINGERS 1,000 ML IV STA (07:21)
[2020-11-11] MEDS ORDERED: PROPOFOL INJECTION 50 ML IV ONE (07:22)
[2020-11-11] MEDS ORDERED: LACTATED RINGERS 1,000 ML IV ONE (07:23)
[2020-11-11 07:42] VITALS: BP 117/76
--- NOTE | 2020-11-11 08:17 | Progress Note-Pre Operative ---
Pre-Operative Progress Note H&P Reviewed The H&P was reviewed, patient examined and no changes noted. Time Seen by Provider: 08:14 Date H&P Reviewed: November 11, 2020 Time H&P Reviewed: 08:15 Pre-Operative Diagnosis: Hx of Colon CA, surveillance colonoscopy JOSÉ MIGUEL MOYER DO November 11, 2020 08:17
--- NOTE | 2020-11-11 09:00 | Progress Note-Post Operative ---
Post-Operative Progess Note Surgeon (s)/Chrome Worker (s) Surgeon JOSÉ MIGUEL MOYER DO Chrome Worker: none Pre-Operative Diagnosis Hx of Colon CA, surveillance colonoscopy Post-Operative Diagnosis Polyps Diveticula ? Ulcer Hemorrhoids Procedure & Operative Findings Date of Procedure 11/11/20 Procedure Performed/Findings Colon with snare Anesthesia Type IV sedation by WILDLIFE PHOTOGRAPHER Estimated Blood Loss Estimated blood loss (mL): scant Specimens/Packing Specimens Removed polyps JOSÉ MIGUEL MOYER DO November 11, 2020 09:00
--- NOTE | 2020-11-11 09:01 | Endoscopy Discharge Instruct ---
Endo Procedure/Findings Findings 1.: Polyp 2.: Diverticulosis 3.: Internal Hemorrhoids 4.: Other Findings (Colonic ulcer???) Discharge Instructions - Activity: You might feel a little sleepy until tomorrow. This is due to the medicine you received to relax you. Until tomorrow, you should: NOT drive a car, operate machinery or power tools. NOT drink any alcoholic beverages. NOT make any important decisions or sign importortant papers. Do not return to work until tomorrow, unless otherwise instructed. Resume previous activities tomorrow. Diet: Start by taking liquids. If you tolerate liquids, advance to solid food. 1.: Colonoscopy in 1 year Notify Physician - If you experience excessive bleeding, unusual abdominal pain, fever, or chest pain, contact your doctor immediately. JOSÉ MIGUEL MOYER DO November 11, 2020 09:01
[2020-11-11 09:05] VITALS: BP 109/55
[2020-11-11 09:10] VITALS: BP 113/68
[2020-11-11 09:40] VITALS: BP 115/66
--- NOTE | 2020-11-11 09:50 | Anesthesia-General Post-Op ---
MAC Patient Condition Mental Status/LOC: Same as Preop Cardiovascular: Satisfactory Nausea/Vomiting: Absent Respiratory: Satisfactory Pain: Controlled Complications: Absent Post Op Complications Complications None Follow Up Care/Instructions Patient Instructions None needed. Anesthesiology Discharge Order Discharge Order Patient is doing well, no complaints, stable vital signs, no apparent adverse anesthesia problems. No complications reported per nursing. CORNELIO BROWN CRNA November 11, 2020 09:50
[2020-11-11 10:00] VITALS: BP 115/66
--- NOTE | 2020-11-12 15:59 | OPERATIVE REPORT ---
DATE OF SERVICE: 11/11/2020 PREOPERATIVE DIAGNOSIS: History of colon cancer. POSTOPERATIVE DIAGNOSES: Colon polyps, diverticula, questionable ulcer and internal hemorrhoids. PROCEDURES PERFORMED: Colonoscopy with snare polypectomy. SURGEON: Marcos Dowling DO. ANALYTICAL DATA SCIENTIST: None. ANESTHESIA: IV sedation by the COMMERCIAL ACCOUNT OFFICER. SPECIMEN: Two polyps taken near the anastomosis, also at the tattooed area. BLOOD LOSS: Scant. FLUIDS: Per anesthesia. POSTOPERATIVE CONDITION: Stable. INDICATION FOR PROCEDURE: The patient is a 75-year-old female with a history of colon cancer, needed a repeat colonoscopy. FINDINGS: She had some polyps that were pretty close to the anastomosis between the colon and the ileum and was actually near a tattooed area. These were taken out. Also had what looked like an ulcer in the descending colon and sigmoid area and she had some internal hemorrhoids as well as diverticula seen. PROCEDURE NOTE: After informed consent was obtained, the patient was brought to the endoscopy suite and placed in bed in left lateral decubitus position. She was administered IV sedation by the COMMERCIAL ACCOUNT OFFICER, who then monitored her vitals the entire time, heart rate, blood pressure and pulse ox and the scope was inserted, pushed in all the way to the anastomosis, took a picture of the anastomosis and then pulled back and just outside the anastomosis near an area of tattooing, there were some polyps seen. I removed a couple of these polyps with snare polypectomy and then continued down the colon, saw some diverticula, took picture of this and then what I believe was the sigmoid or descending colon, saw what looked like a large ulcer, it was hard to tell. No bleeding. Continued down into the rectum and saw some internal hemorrhoids, took a picture. The patient will need a repeat colonoscopy in a year because of these polyps and history of cancer as well as to look at the possibly ulcerated area. She was recovered in endoscopy suite and tolerated the procedure. Job ID: [id number] DocumentID: [id number] Dictated Date: 11/12/2020 09:53:43 Document Controller Date: 11/12/2020 15:58:17 Dictated By: MARCOS DOWLING DO
== END 2020-11-11 10:00 | disposition home or self-care (01) ==
LOC: ENDO 07:10
PROVIDERS: ATTEND Surgery
DX: Z12.11 Encounter for screening for malignant neoplasm of colon (principal); K63.5 Polyp of colon; K57.30 Diverticulosis of large intestine without perforation or abscess without bleeding; K64.8 Other hemorrhoids; I10 Essential (primary) hypertension; F32.9 Major depressive disorder, single episode, unspecified; K21.9 Gastro-esophageal reflux disease without esophagitis; M19.90 Unspecified osteoarthritis, unspecified site; I25.10 Atherosclerotic heart disease of native coronary artery without angina pectoris; G43.909 Migraine, unspecified, not intractable, without status migrainosus; F17.210 Nicotine dependence, cigarettes, uncomplicated; Z95.5 Presence of coronary angioplasty implant and graft; Z88.0 Allergy status to penicillin; Z88.2 Allergy status to sulfonamides; Z91.030 Bee allergy status; Z88.8 Allergy status to other drugs, medicaments and biological substances; Z79.02 Long term (current) use of antithrombotics/antiplatelets; Z79.82 Long term (current) use of aspirin; Z79.891 Long term (current) use of opiate analgesic; Z79.899 Other long term (current) drug therapy; Z90.89 Acquired absence of other organs; Z90.49 Acquired absence of other specified parts of digestive tract; Z85.038 Personal history of other malignant neoplasm of large intestine; Z95.828 Presence of other vascular implants and grafts

== ENCOUNTER 2021-02-21 13:15 | Outpatient (RCR) | payer MEDICARE ==
[2021-01-16 10:57] LABS: BASOPHILS % (AUTO) 0 % (0-10); EOSINOPHILS # (AUTO) 0.1 10^3/uL (0.0-0.3); EOSINOPHILS % (AUTO) 2 % (0-10); HEMATOCRIT 43 % (35-52); HEMOGLOBIN 14.2 g/dL (11.5-16.0); LYMPHOCYTES # (AUTO) 1.5 10^3/uL (1.0-4.0); LYMPHOCYTES % (AUTO) 20 % (12-44); MEAN CORPUSCULAR HEMOGLOBIN 31 pg (25-34); MEAN CORPUSCULAR HGB CONC 33 g/dL (32-36); MEAN CORPUSCULAR VOLUME 94 fL (80-99); MEAN PLATELET VOLUME 9.2 fL (9.0-12.2); MONOCYTES # (AUTO) 0.7 10^3/uL (0.0-1.0); MONOCYTES % (AUTO) 9 % (0-12); NEUTROPHILS # (AUTO) 4.9 10^3/uL (1.8-7.8); NEUTROPHILS % (AUTO) 68 % (42-75); PLATELET COUNT 225 10^3/uL (130-400); WHITE BLOOD COUNT 7.3 10^3/uL (4.3-11.0)
[2021-01-16 11:17] LABS: ALANINE AMINOTRANSFERASE 36 U/L (0-55); ALBUMIN 3.7 GM/DL (3.2-4.5); ALKALINE PHOSPHATASE 66 U/L (40-136); BILIRUBIN,TOTAL 0.2 MG/DL (0.1-1.0); BUN/CREATININE RATIO 14; CALCIUM 8.6 MG/DL (8.5-10.1); CARBON DIOXIDE 30 MMOL/L (21-32); CHLORIDE 101 MMOL/L (98-107); CREATININE SERUM 0.72 MG/DL (0.60-1.30); GFR ESTIMATED > 60; GLUCOSE 120 MG/DL (70-105); POTASSIUM 4.1 MMOL/L (3.6-5.0); SODIUM 137 MMOL/L (135-145); TOTAL PROTEIN 6.1 GM/DL (6.4-8.2)
== END 2021-04-16 | disposition home or self-care (01) ==
LOC: ONC 13:15
PROVIDERS: ATTEND Internal Medicine Hematology & Oncology
DX: Z45.2 Encounter for adjustment and management of vascular access device (principal); C18.9 Malignant neoplasm of colon, unspecified; E11.9 Type 2 diabetes mellitus without complications; I11.9 Hypertensive heart disease without heart failure; Z98.890 Other specified postprocedural states; Z72.0 Tobacco use; Z92.21 Personal history of antineoplastic chemotherapy
CPT/HCPCS: 36591; 80053; 82378; 85025; 99213

== ENCOUNTER 2021-05-15 07:58 | Outpatient (RCR) | payer MEDICARE ==
[~2021-05-15 07:58] MED LIST changes: -BARIUM SUSPENSION 2.1% (VANILLA SILQ) 450 ML PO ONE; -CITA40TA11 PO; +CITA40TA13 PO; -HOLD METFORMIN - RECEIVED CONTRAST 20 ML VIAL IV SCH; -IOHEXOL 350 MG/ML 100 ML (OMNIPAQUE 350) VIAL IV ONE; -NS 100 ML (IVPB) BAG IV ONE; +POTA-169 PO; -POTA20TA8 PO
[2021-05-15] MEDS ORDERED: ALTEPLASE 2 MG (CATHFLO) CANCER CENTER IV ONE (08:15)
[2021-05-15 08:26] LABS: BASOPHILS % (AUTO) 0 % (0-10); EOSINOPHILS # (AUTO) 0.1 10^3/uL (0.0-0.3); EOSINOPHILS % (AUTO) 2 % (0-10); HEMATOCRIT 44 % (35-52); HEMOGLOBIN 14.9 g/dL (11.5-16.0); LYMPHOCYTES % (AUTO) 17 % (12-44); MEAN CORPUSCULAR HEMOGLOBIN 31 pg (25-34); MEAN CORPUSCULAR HGB CONC 34 g/dL (32-36); MEAN CORPUSCULAR VOLUME 93 fL (80-99); MEAN PLATELET VOLUME 8.9 fL (9.0-12.2); MONOCYTES # (AUTO) 0.5 10^3/uL (0.0-1.0); MONOCYTES % (AUTO) 8 % (0-12); NEUTROPHILS # (AUTO) 4.5 10^3/uL (1.8-7.8); NEUTROPHILS % (AUTO) 73 % (42-75); PLATELET COUNT 222 10^3/uL (130-400); WHITE BLOOD COUNT 6.2 10^3/uL (4.3-11.0)
[2021-05-15 08:52] LABS: BILIRUBIN,TOTAL 0.4 MG/DL (0.1-1.0); CALCIUM 9.5 MG/DL (8.5-10.1); CREATININE SERUM 0.73 MG/DL (0.60-1.30); TOTAL PROTEIN 6.8 GM/DL (6.4-8.2)
== END 2021-07-04 | disposition home or self-care (01) ==
LOC: ONC 07:58
PROVIDERS: ATTEND Internal Medicine Hematology & Oncology
DX: C18.9 Malignant neoplasm of colon, unspecified (principal); E11.9 Type 2 diabetes mellitus without complications; I11.9 Hypertensive heart disease without heart failure; Z98.890 Other specified postprocedural states; Z72.0 Tobacco use; Z92.21 Personal history of antineoplastic chemotherapy
CPT/HCPCS: 36415; 36593; 80053; 82378; 85025

== ENCOUNTER → 2021-05-15 | Outpatient (CLI) | payer MEDICARE ==
[~2021-05-15] MED LIST changes: +BARIUM SUSPENSION 2.1% (VANILLA SILQ) 450 ML PO ONE; +HOLD METFORMIN - RECEIVED CONTRAST 20 ML VIAL IV SCH; +IOHEXOL 350 MG/ML 100 ML (OMNIPAQUE 350) VIAL IV ONE; +NS 100 ML (IVPB) BAG IV ONE; -TERB250T16 PO; +TERB250T88 PO
--- NOTE | 2021-05-15 11:05 | Diagnostic Imaging Report ---
EXAMINATION: CT abdomen and pelvis with and without intravenous contrast. TECHNIQUE: Precontrast acquisitions were acquired through the abdomen and pelvis. Multiple contiguous axial images were obtained through the abdomen and pelvis after the administration of intravenous contrast. All CT scans use one or more of the following dose optimizing techniques: automated exposure control, MA and/or KvP adjustment based on patient size and exam type or iterative reconstruction. HISTORY: Colon cancer. COMPARISON: PET/CT dated 10/03/2019 FINDINGS: Limited views of the lower thorax are unremarkable. The liver is normal without focal lesion. There is no biliary ductal dilation. Gallbladder is normal. Pancreas is normal. Spleen is normal. Adrenal glands are normal. The kidneys are normal. There is no hydronephrosis. Urinary bladder is normal. Calcified fibroid is present in the uterus. Visualized bowel is normal in caliber without obstruction or inflammation. There has been right colon resection. No free fluid or air. No abdominal or pelvic lymphadenopathy. Left superficial femoral artery is occluded. There is a stent in the right common femoral artery. Aorta is heavily atherosclerotic with extensive calcified plaquing in the common iliac arteries. There are no suspicious osseous lesions. IMPRESSION: 1. No metastatic disease seen in the abdomen or pelvis. Dictated by: Dictated on workstation # [id number]
== END ==
LOC: RAD 09:15
PROVIDERS: ATTEND Internal Medicine Hematology & Oncology
DX: R97.0 Elevated carcinoembryonic antigen [CEA] (principal); Z85.038 Personal history of other malignant neoplasm of large intestine
CPT/HCPCS: 74178

== ENCOUNTER 2021-07-23 13:51 | Outpatient (RCR) | payer MEDICARE ==
[~2021-07-23 13:51] MED LIST changes: +DIPH50CA PO; -DIPH50CA40 PO
== END 2021-08-04 | disposition home or self-care (01) ==
LOC: ONC 13:51
PROVIDERS: ATTEND Internal Medicine Hematology & Oncology
DX: C18.9 Malignant neoplasm of colon, unspecified (principal); E11.9 Type 2 diabetes mellitus without complications; I10 Essential (primary) hypertension
CPT/HCPCS: 99213

== ENCOUNTER 2021-10-24 11:23 | Outpatient (RCR) | payer MEDICARE ==
[~2021-10-24 11:23] MED LIST changes: -CATHETER FLUSH 10 ML SYR IV PRN; -HOLD METFORMIN - RECEIVED CONTRAST 20 ML VIAL IV SCH; -IOHEXOL 350 MG/ML 100 ML (OMNIPAQUE 350) VIAL IV NR; -NS 100 ML (IVPB) BAG IV NR
[2021-10-24 12:30] LABS: BASOPHILS % (AUTO) 1 % (0-10); EOSINOPHILS # (AUTO) 0.1 10^3/uL (0.0-0.3); EOSINOPHILS % (AUTO) 3 % (0-10); HEMATOCRIT 43 % (35-52); HEMOGLOBIN 14.6 g/dL (11.5-16.0); LYMPHOCYTES % (AUTO) 21 % (12-44); MEAN CORPUSCULAR HEMOGLOBIN 31 pg (25-34); MEAN CORPUSCULAR HGB CONC 34 g/dL (32-36); MEAN CORPUSCULAR VOLUME 91 fL (80-99); MEAN PLATELET VOLUME 9.5 fL (9.0-12.2); MONOCYTES # (AUTO) 0.5 10^3/uL (0.0-1.0); MONOCYTES % (AUTO) 10 % (0-12); NEUTROPHILS # (AUTO) 3.1 10^3/uL (1.8-7.8); NEUTROPHILS % (AUTO) 66 % (42-75); PLATELET COUNT 225 10^3/uL (130-400); WHITE BLOOD COUNT 4.8 10^3/uL (4.3-11.0)
[2021-10-24 12:51] LABS: ALBUMIN 3.9 GM/DL (3.2-4.5); BILIRUBIN,TOTAL 0.3 MG/DL (0.1-1.0); CALCIUM 9.3 MG/DL (8.5-10.1); CREATININE SERUM 0.77 MG/DL (0.60-1.30); POTASSIUM 4.2 MMOL/L (3.6-5.0); TOTAL PROTEIN 6.4 GM/DL (6.4-8.2)
== END 2021-11-01 | disposition home or self-care (01) ==
LOC: ONC 11:23
PROVIDERS: ATTEND Internal Medicine Hematology & Oncology
DX: C18.9 Malignant neoplasm of colon, unspecified (principal); E11.9 Type 2 diabetes mellitus without complications; I10 Essential (primary) hypertension
CPT/HCPCS: 80053; 82378; 85025

== ENCOUNTER → 2021-10-24 | Outpatient (CLI) | payer MEDICARE ==
[~2021-10-24] MED LIST changes: +CATHETER FLUSH 10 ML SYR IV PRN; +HOLD METFORMIN - RECEIVED CONTRAST 20 ML VIAL IV SCH; +IOHEXOL 350 MG/ML 100 ML (OMNIPAQUE 350) VIAL IV NR; +NS 100 ML (IVPB) BAG IV NR
--- NOTE | 2021-10-24 14:54 | Diagnostic Imaging Report ---
INDICATION: Routine screening. COMPARISON: No prior mammograms are available for comparison. 2-D and 3-D bilateral screening mammography was performed with CAD. Scattered fibroglandular densities are identified bilaterally. No mass or malignant-appearing microcalcifications are seen. Axillae are unremarkable. IMPRESSION: BI-RADS Category 1 No mammographic features suspicious for malignancy are identified. ACR BI-RADS Category 1: Negative. Result letter will be mailed to the patient. Note: At least 10% of breast cancer is not imaged by mammography. Dictated by: Dictated on workstation # [id number]
--- NOTE | 2021-10-24 15:07 | Diagnostic Imaging Report ---
PROCEDURE: CT chest, abdomen, and pelvis with contrast. TECHNIQUE: Multiple contiguous axial images were obtained through the chest, abdomen, and pelvis after the administration of intravenous contrast. Auto Exposure Controls were utilized during the CT exam to meet ALARA standards for radiation dose reduction. INDICATION: Colon cancer, history of at least partial colectomy. Its compared with the CT abdomen and pelvis dated 05/15/2021. Chest correlation limited to metabolic CT fusion PET 10/03/2019. CHEST: Chronic centrilobular emphysema present. No lung mass or suspicious pulmonary nodule. No findings of pneumonia or edema lungs are well expanded. No significant atelectasis. There is no axillary hilar or mediastinal lymphadenopathy. The atherosclerotic aorta is nonaneurysmal and patent. No acute or suspicious soft tissue or osseous chest wall pathology. Central venous catheter in the mid SVC. There is coronary artery atherosclerotic vascular calcifications chronic. ABDOMEN AND PELVIS: Mild hepatic steatosis but no evidence for a liver mass. There is no bile duct dilatation. The gallbladder nonfocal. The adrenals negative. The spleen unremarkable. The pancreas nonacute and nonfocal. There is aortoiliac atherosclerotic vascular calcifications without aneurysm. There is a ventral umbilical and supraumbilical hernia comprised of a segment of unobstructed and large bowel stable from prior. There are postsurgical changes to the colon on the right as well as at the rectum no complication apparent. There are calcified uterine fibroids chronic. The urinary bladder unremarkable. There is no adnexal lesion. There is no mesenteric or retroperitoneal adenopathy. There are chronic degenerative changes to the bony structures and a perineural cyst in the left S2 sacral foramen chronic, no acute or suspicious osseous pathology. IMPRESSION: No findings of neoplastic recurrence, metastatic disease or acute abnormalities at CT chest, abdomen and pelvis. Stable chronic findings detailed above. Dictated by: Dictated on workstation # [id number]
== END ==
LOC: RAD 11:30
PROVIDERS: ATTEND Internal Medicine Hematology & Oncology
DX: Z85.038 Personal history of other malignant neoplasm of large intestine (principal); Z12.31 Encounter for screening mammogram for malignant neoplasm of breast; C18.9 Malignant neoplasm of colon, unspecified; R97.0 Elevated carcinoembryonic antigen [CEA]; Z90.49 Acquired absence of other specified parts of digestive tract; J43.2 Centrilobular emphysema; I25.10 Atherosclerotic heart disease of native coronary artery without angina pectoris; Z95.818 Presence of other cardiac implants and grafts; K76.0 Fatty (change of) liver, not elsewhere classified; K42.9 Umbilical hernia without obstruction or gangrene
CPT/HCPCS: 71260; 74177; 77063; 77067

== ENCOUNTER 2021-11-20 10:22 | Outpatient (RCR) | payer MEDICARE ==
[~2021-11-20 10:22] MED LIST changes: +DIPH-809 PO; -DIPH50CA PO
== END 2021-12-02 | disposition home or self-care (01) ==
LOC: ONC 10:22
PROVIDERS: ATTEND Internal Medicine Hematology & Oncology
DX: C18.9 Malignant neoplasm of colon, unspecified (principal); E11.9 Type 2 diabetes mellitus without complications; I10 Essential (primary) hypertension; I11.9 Hypertensive heart disease without heart failure; F17.210 Nicotine dependence, cigarettes, uncomplicated; Z92.21 Personal history of antineoplastic chemotherapy
CPT/HCPCS: 99213

== ENCOUNTER → 2022-02-19 | Outpatient (CLI) | payer MEDICARE ==
--- NOTE | 2022-02-19 15:47 | Diagnostic Imaging Report ---
INDICATION: Wrist fracture. Follow-up. COMPARISON: None FINDINGS: Three radiographic views of the right wrist were obtained. There is a transversely oriented linear band of sclerosis through the distal radius. Cortical defect is identified anteriorly on the lateral view. Findings are suggestive of partially healed nonacute fracture. There is no significant displacement of fracture fragments. Radiocarpal joint space appears appropriate. No unexpected radiopaque foreign bodies are seen. IMPRESSION: 1. Probable partially healed nonacute fracture of the distal radius, as above. Dictated by: Dictated on workstation # [id number]
== END ==
LOC: RAD FS 11:05
PROVIDERS: ATTEND Nurse Practitioner
DX: S52.571A Other intraarticular fracture of lower end of right radius, initial encounter for closed fracture (principal); X58.XXXA Exposure to other specified factors, initial encounter
CPT/HCPCS: 73110

== ENCOUNTER → 2022-03-12 | Outpatient (CLI) | payer MEDICARE ==
--- NOTE | 2022-03-12 14:56 | Diagnostic Imaging Report ---
INDICATION: Right wrist fracture AP and lateral views of the right wrist are obtained and compared with 02/19/2022 Sclerotic changes are seen in the distal radius compatible with healing fracture. There is no malalignment or new bony abnormality. Remaining structures are intact. IMPRESSION: Stable well aligned healing fracture of distal radius with no new abnormality. Dictated by: Dictated on workstation # [id number]
== END ==
LOC: RAD FS 09:56
PROVIDERS: ATTEND Nurse Practitioner
DX: S52.571D Other intraarticular fracture of lower end of right radius, subsequent encounter for closed fracture with routine healing (principal); X58.XXXD Exposure to other specified factors, subsequent encounter
CPT/HCPCS: 73100

== ENCOUNTER → 2022-06-11 | Outpatient (CLI) | payer MEDICARE ==
--- NOTE | 2022-06-11 17:46 | Diagnostic Imaging Report ---
EXAMINATION: Right wrist radiographs, 4 views. COMPARISON: Right wrist radiographs February 19, 2022. HISTORY: 76-year-old female, followup right wrist fracture. FINDINGS: There is a small deformity of the tip of the ulnar styloid which likely relates to fracture. This does appear to be new since February 19, 2022. This could relate to interval displacement of the previously nonvisible fracture. Particularly no interval trauma has been noted. There is interval healing response at site of the distal radial metaphyseal fracture with very subtle band of sclerosis and no visible fracture line. The bones do appear to be potentially demineralized overall. The joint spaces are relatively well preserved. IMPRESSION: 1. Near complete healing of prior distal radial metaphyseal fracture. 2. Small fracture involving the ulnar styloid tip which could relate to interval displacement of the previously non-radiographically apparent fracture or a new fracture if there has been interval trauma. Dictated by: Dictated on workstation # [id number]
== END ==
LOC: RAD FS 13:36
PROVIDERS: ATTEND Nurse Practitioner
DX: S52.571D Other intraarticular fracture of lower end of right radius, subsequent encounter for closed fracture with routine healing (principal); X58.XXXD Exposure to other specified factors, subsequent encounter
CPT/HCPCS: 73110

== ENCOUNTER → 2022-06-17 | Outpatient (CLI) | payer MEDICARE ==
[2022-06-17 15:39] LABS: BASOPHILS % (AUTO) 1 % (0-10); EOSINOPHILS # (AUTO) 0.1 10^3/uL (0.0-0.3); EOSINOPHILS % (AUTO) 2 % (0-10); HEMATOCRIT 39 % (35-52); HEMOGLOBIN 13.7 g/dL (11.5-16.0); LYMPHOCYTES # (AUTO) 1.2 10^3/uL (1.0-4.0); LYMPHOCYTES % (AUTO) 23 % (12-44); MEAN CORPUSCULAR HEMOGLOBIN 31 pg (25-34); MEAN CORPUSCULAR HGB CONC 35 g/dL (32-36); MEAN CORPUSCULAR VOLUME 88 fL (80-99); MEAN PLATELET VOLUME 9.4 fL (9.0-12.2); MONOCYTES # (AUTO) 0.4 10^3/uL (0.0-1.0); MONOCYTES % (AUTO) 7 % (0-12); NEUTROPHILS # (AUTO) 3.6 10^3/uL (1.8-7.8); NEUTROPHILS % (AUTO) 68 % (42-75); PLATELET COUNT 201 10^3/uL (130-400); WHITE BLOOD COUNT 5.4 10^3/uL (4.3-11.0)
[2022-06-17 15:48] LABS: BILIRUBIN,TOTAL 0.2 MG/DL (0.1-1.0); CALCIUM 8.9 MG/DL (8.5-10.1); CREATININE SERUM 0.64 MG/DL (0.60-1.30); POTASSIUM 3.5 MMOL/L (3.6-5.0)
[2022-06-17 15:49] LABS: ALBUMIN 3.8 GM/DL (3.2-4.5); TOTAL PROTEIN 6.2 GM/DL (6.4-8.2)
== END ==
LOC: LAB FS 14:47
PROVIDERS: ATTEND Internal Medicine Hematology & Oncology
DX: C18.9 Malignant neoplasm of colon, unspecified (principal)
CPT/HCPCS: 36415; 80053; 82378; 85025

== ENCOUNTER 2022-06-18 10:30 | Outpatient (RCR) | payer MEDICARE | END 2022-07-04 | disposition home or self-care (01) | LOC: ONC 10:30 | PROVIDERS: ATTEND Internal Medicine Hematology & Oncology | DX: C18.9 Malignant neoplasm of colon, unspecified (principal); E11.9 Type 2 diabetes mellitus without complications; I11.9 Hypertensive heart disease without heart failure; F17.210 Nicotine dependence, cigarettes, uncomplicated; Z92.21 Personal history of antineoplastic chemotherapy | CPT/HCPCS: 99213 ==

== ENCOUNTER → 2022-06-18 | Outpatient (CLI) | payer MEDICARE ==
--- NOTE | 2022-06-18 14:01 | Diagnostic Imaging Report ---
PROCEDURE: CT right upper extremity without contrast. TECHNIQUE: Multiple contiguous axial images were obtained through the right upper extremity without the use of intravenous contrast. Sagittal and coronal reformations were then performed. Auto Exposure Controls were utilized during the CT exam to meet ALARA standards for radiation dose reduction. INDICATION: Pain in the right wrist, radius fracture. COMPARISON: Radiographs from 06/11/2022 FINDINGS: Redemonstrated is a fracture along the dorsal aspect of the distal right radius. This does demonstrate healing changes of bony bridging of the fracture involving about 75% of the fracture. There is mild dorsal angulation of the distal articular surface of the radius resulting from the fracture deformity. Bones appear osteopenic. Alignment is normal. There are moderate degenerative changes at the basal joints of the thumb. There is mild degenerative change at the triscaphe joint. There is mild subcutaneous edema about the wrist. IMPRESSION: 1. Posttraumatic deformity of the distal right radius with mild posterior angulation. There is bony bridging across the majority of the fracture site. 2. Degenerative change in the right wrist. Dictated by: Dictated on workstation # [id number]
== END ==
LOC: RAD 13:23
PROVIDERS: ATTEND Nurse Practitioner
DX: S52.571D Other intraarticular fracture of lower end of right radius, subsequent encounter for closed fracture with routine healing (principal); M19.031 Primary osteoarthritis, right wrist; X58.XXXD Exposure to other specified factors, subsequent encounter
CPT/HCPCS: 73200

== ENCOUNTER → 2022-07-10 | Outpatient (CLI) | payer MEDICARE ==
[~2022-07-10] MED LIST changes: +CATHETER FLUSH 10 ML SYR IV PRN; +HOLD METFORMIN - RECEIVED CONTRAST 20 ML VIAL IV SCH; +IOHEXOL 350 MG/ML 100 ML (OMNIPAQUE 350) VIAL IV ONE; +NS (IVPB) 100 ML ONE; +NS 100 ML (IVPB) BAG IV ONE
--- NOTE | 2022-07-10 14:06 | Diagnostic Imaging Report ---
EXAMINATION: CT chest, abdomen and pelvis with intravenous contrast. TECHNIQUE: Multiple contiguous axial images were obtained through the chest, abdomen and pelvis after the uneventful administration of intravenous contrast. All CT scans use one or more of the following dose optimizing techniques: automated exposure control, MA and/or KvP adjustment based on patient size and exam type or iterative reconstruction. HISTORY: Colon cancer follow-up COMPARISON: 10/24/2021 FINDINGS: Thyroid: The visualized thyroid gland is normal. Mediastinum: Heart size is normal without significant pericardial effusion. Calcifications of the aorta and coronary vessels. Thoracic aorta is normal in caliber. A right-sided port catheter is present. No suspicious lymphadenopathy. Lungs and airways: The lungs are clear without consolidation, pleural effusion, or pneumothorax. There are background emphysematous changes of the lungs. No new suspicious pulmonary lesion. The airways are normal. Solid organs: The liver is normal without focal lesion. The gallbladder is normal. There is no biliary ductal dilation. Pancreas is normal. Spleen is normal. Adrenal glands are normal. The kidneys are normal without hydronephrosis. Bowel: There are are surgical changes of the bowel with multifocal areas of mild dilation involving the small bowel and the mid abdomen. There are no findings of acute appendicitis. Peritoneum: There is no intraperitoneal free fluid or free air. No suspicious lymphadenopathy. Vasculature: Calcification of the aorta without aneurysm. Musculoskeletal: Surgical and degenerative changes of the spine without suspicious osseous lesion or compression fracture. There is diffuse osseous demineralization. There is a ventral abdominal wall hernia near the umbilicus which contains a portion of the transverse colon without obstruction. Pelvis: There is a calcified fibroid present within the uterus. The urinary bladder is normal. IMPRESSION: 1. No new findings of metastatic disease within the chest, abdomen, or pelvis. 2. Multiple areas of dilated small bowel from the mid abdomen which are new from prior study. These findings could be secondary to postoperative changes versus partial obstruction or ileus. Dictated by: Dictated on workstation # [id number]
== END ==
LOC: RAD FS 10:55
PROVIDERS: ATTEND Internal Medicine Hematology & Oncology
DX: R97.0 Elevated carcinoembryonic antigen [CEA] (principal); Z85.038 Personal history of other malignant neoplasm of large intestine
CPT/HCPCS: 71260; 74177; Q9967

== ENCOUNTER 2022-07-23 10:23 | Outpatient (RCR) | payer MEDICARE ==
[~2022-07-23 10:23] MED LIST changes: -CATHETER FLUSH 10 ML SYR IV PRN; -HOLD METFORMIN - RECEIVED CONTRAST 20 ML VIAL IV SCH; -IOHEXOL 350 MG/ML 100 ML (OMNIPAQUE 350) VIAL IV ONE; -NS (IVPB) 100 ML ONE; -NS 100 ML (IVPB) BAG IV ONE
== END 2022-08-04 | disposition home or self-care (01) ==
LOC: ONC 10:23
PROVIDERS: ATTEND Internal Medicine Hematology & Oncology
DX: C18.9 Malignant neoplasm of colon, unspecified (principal); I10 Essential (primary) hypertension; E11.9 Type 2 diabetes mellitus without complications; R19.7 Diarrhea, unspecified; F17.210 Nicotine dependence, cigarettes, uncomplicated; Z92.21 Personal history of antineoplastic chemotherapy
CPT/HCPCS: 99213

== ENCOUNTER 2022-08-12 06:18 | Outpatient (CLI) | payer MEDICARE ==
[~2022-08-12] VITALS: Ht 165.1 cm; Wt 63.5 kg
[~2022-08-12 06:18] MED LIST changes: -DIPH-809 PO; +DIPH-871 PO
[2022-08-12] MEDS ORDERED: FAMO-144 PO (09:37)
[2022-08-12] MEDS ORDERED: METH-336 PO (09:37)
== END 2022-08-12 09:41 ==
LOC: PREOP 06:18
PROVIDERS: ATTEND Surgery
DX: Z01.818 Encounter for other preprocedural examination (principal)

== ENCOUNTER 2022-08-21 09:37 | Day surgery (SDC) | payer MEDICARE ==
[~2022-08-21] VITALS: Ht 165 cm; Wt 63.5 kg
[~2022-08-21 09:37] MED LIST changes: +FAMO-144 PO; +METH-336 PO
[2022-08-21] MEDS ORDERED: LACTATED RINGERS 1,000 ML IV STA (09:44)
--- NOTE | 2022-08-21 10:09 | Progress Note-Pre Operative ---
Pre-Operative Progress Note Date of Available H&P: Aug 06, 2022 Date H&P Reviewed: Aug 21, 2022 Time H&P Reviewed: 10:04 History & Physical: H&P Reviewed, Patient Examed, No changes noted Pre-Operative Diagnosis: Hx of Colon CA, surveillance JOSÉ MIGUEL MOYER DO Aug 21, 2022 10:09
[2022-08-21 10:20] VITALS: BP 148/72
[2022-08-21] MEDS ORDERED: PROPOFOL INJECTION 50 ML IV ONE (10:47)
[2022-08-21 11:20] VITALS: BP 145/67
[2022-08-21 11:25] VITALS: BP 146/65
--- NOTE | 2022-08-21 11:25 | Progress Note-Post Operative ---
Post-Operative Progess Note Surgeon (s)/Student Accounts Manager (s) Surgeon JOSÉ MIGUEL OMYER DO Student Accounts Manager: [place], MSIII Pre-Operative Diagnosis Hx of Colon CA, surveillance Post-Operative Diagnosis polyp int hemorrhoids Procedure & Operative Findings Date of Procedure 08/21/22 Procedure Performed/Findings Colonoscopy with hot snare PROCEDURE NOTE: After informed consent was obtained, the patient was brought to the endoscopy suite, placed in bed in left lateral decubitus position. She was administered IV sedation by the ROLLER SKATE ASSEMBLER who then monitored her vitals the entire time, heart rate, blood pressure and pulse ox and the scope was inserted, pushed all the way to about 80-90 cm; to the anastomosis. Took a picture of the anastomotic site and noted the terminal ileum. Then slowly withdrew the scope insufflating to look circumferentially at the aguila starting at anastomosis and then found the tattooing from last scope. At this site found a large polyp, took a picture and then removed it with four snares to get all of it. Then continued down the transverse colon to the splenic flexure, into the descending colon, down into the sigmoid and then into the rectal vault. Took picture of the internal hemorrhoids on the way out, did not retroflex. The patient tolerated the procedure. She was recovered in endoscopy suite. Recommended for repeat colonoscopy in 1 year; because I took a large polyp in pieces. Anesthesia Type IV sedation by ROLLER SKATE ASSEMBLER Estimated Blood Loss Estimated blood loss (mL): scant Specimens/Packing Specimens Removed colon polyp JOSÉ MIGUEL MOYER DO Aug 21, 2022 11:25
--- NOTE | 2022-08-21 11:27 | Endoscopy Discharge Instruct ---
Endo Procedure/Findings Findings 1.: Polyp 2.: Internal Hemorrhoids Discharge Instructions - Activity: You might feel a little sleepy until tomorrow. This is due to the medicine you received to relax you. Until tomorrow, you should: NOT drive a car, operate machinery or power tools. NOT drink any alcoholic beverages. NOT make any important decisions or sign importortant papers. Do not return to work until tomorrow, unless otherwise instructed. Resume previous activities tomorrow. Diet: Start by taking liquids. If you tolerate liquids, advance to solid food. 1.: Colonoscopy in 1 year Notify Physician - If you experience excessive bleeding, unusual abdominal pain, fever, or chest pain, contact your doctor immediately. JOSÉ MIGUEL MOYER DO Aug 21, 2022 11:27
[2022-08-21 12:00] VITALS: BP 151/79
[2022-08-21 12:15] VITALS: BP 151/79
--- NOTE | 2022-08-21 14:07 | Anesthesia-General Post-Op ---
MAC Patient Condition Mental Status/LOC: Same as Preop Cardiovascular: Satisfactory Nausea/Vomiting: Absent Respiratory: Satisfactory Pain: Controlled Complications: Absent Post Op Complications Complications None Follow Up Care/Instructions Patient Instructions None needed. Anesthesiology Discharge Order Discharge Order Patient is doing well, no complaints, stable vital signs, no apparent adverse anesthesia problems. No complications reported per nursing. OLIVIA GIORDANO CRNA Aug 21, 2022 14:07
== END 2022-08-21 12:15 | disposition home or self-care (01) ==
LOC: ENDO 09:37
PROVIDERS: ATTEND Surgery
DX: Z12.11 Encounter for screening for malignant neoplasm of colon (principal); K63.5 Polyp of colon; K64.8 Other hemorrhoids; F17.210 Nicotine dependence, cigarettes, uncomplicated; Z85.038 Personal history of other malignant neoplasm of large intestine